=== PATIENT | male | born 1945 | race Caucasian/White ===

== ENCOUNTER 2017-02-10 09:02 | Inpatient (IN) ==
[2017-02-10 11:06] LABS: MANUAL DIFF NEEDED? NO
[2017-02-10 11:11] LABS: BASO% 0.5 % (0.0-0.8); EOS% 3.4 % (0.0-10.0); HEMATOCRIT 36.1 % (42.0-52.0); HEMOGLOBIN 11.5 g/dL (14.0-18.0); IMM GRAN# 0.02 X1000 (0.0-0.04); IMM GRAN% 0.2 % (0.0-0.5); LYMPH# 1.41 X1000 (1.2-3.4); LYMPH% 16.1 % (20.5-51.1); MCH 25.6 PG (27-31); MCHC 31.9 g/dL (33-37); MCV 80.4 FL (81-99); MONO# 0.99 X1000 (0.11-0.59); MONO% 11.3 % (1.7-9.3); MPV 9.9 FL (7.4-10.4); NEUT% 68.5 % (42.2-75.2); PLT 296 X1000 (130-400); RBC 4.49 XMIL (4.7-6.1)
[2017-02-10 11:25] LABS: CALCIUM 8.2 mg/dL (8.8-10.2); POTASSIUM 4.6 mmol/L (3.5-5.1)
[2017-02-10 11:47] LABS: ALLEN TEST YES; BE 1.9 mmoll (-3.0-3.0); BLOOD TYPE ARTERIAL; DRAW SITE L RADIAL; METHB 1.6 % (0.0-1.5); MODALITY ROOM AIR; O2(CT) 15.8 mL/dL (15.0-23.0); PCO2(98.6) 36 mmHg (35-45); PO2(98.6) 77 mmHg (60-100); SAMPLE BLOOD; SAO2 97.7 % (95.0-100.0); THB 11.9 g/dL (11.5-17.4); pH(98.6) 7.46 (7.35-7.45)
--- NOTE | 2017-02-10 12:26 | Diag Imaging Result Document ---
PROCEDURE NAME: CHEST-2 VIEWS - 02/10/2017 FRONTAL AND LATERAL CHEST, TWO VIEWS: COMPARISON: Compared to 01/13/2017. FINDINGS: A heart valve has been replaced. The heart remains mildly enlarged. There is a moderate sized left-sided pleural effusion and there is basilar atelectasis similar to the prior exam. The right lung remains well expanded and clear. No right-sided effusion. IMPRESSION: Stable chest.
--- NOTE | 2017-02-10 12:39 | EKG Report ---
Test Performed on : 02/10/2017 10:48:56 AM Test Reason : chest pain Blood Pressure : / mmHG Vent. Rate : 077 BPM Atrial Rate : 077 BPM P-R Int : 178 ms QRS Dur : 154 ms QT Int : 442 ms P-R-T Axes : 003 074 210 degrees QTc Int : 500 ms Normal sinus rhythm. Left bundle branch block Abnormal ECG When compared with ECG of 04-NOV-2016 06:44, QRS axis shifted right T wave inversion more evident in Inferior leads Confirmed by Robin HERNANDEZ, Grayson Luna ([id number]) on 02/10/2017 4:03:17 PM
--- NOTE | 2017-02-10 13:49 | Diag Imaging Result Document ---
PROCEDURE NAME: ANGIOGRAM/PULMONARY ARTERIES - 02/10/2017 CT OF THE CHEST WITH INTRAVENOUS CONTRAST AND CLARITY: FINDINGS: There are no filling defects in the pulmonary arteries. There are calcifications in the mitral and aortic valves. There are coronary calcifications. The aorta is not distended and there is no evidence of dissection. There is a large left pleural effusion. There is compressive atelectasis present throughout much of the left lung particularly the left lower lobe. There is some apparent thickening of the pleura over the mediastinum on the left with some calcification. There has been previous sternotomy. There are a number of small and nonspecific appearing mediastinal nodes. There are calcifications in the coronary arteries. There is at least one calcified granuloma in the right lower lobe. There is some questionable nodules in the inferomedial posterior costophrenic sulcus on the right. IMPRESSION: 1. Left pleural fluid collection. 2. Compressive atelectasis as described. 3. Other nonacute findings as described above.
[2017-02-10] MEDS: HUMULIN R SUBQ SCH ×3 (15:23→22:02)
[2017-02-10] MEDS: COREG PO SCH (22:17)
[2017-02-10] MEDS: LOPRESSOR PO SCH (22:17)
[2017-02-10] MEDS: COLACE PO SCH (22:17)
[2017-02-10] MEDS: COZAAR PO SCH (22:17)
[2017-02-11] MEDS: HUMULIN R SUBQ SCH ×4 (06:03→21:17)
--- NOTE | 2017-02-11 07:09 | HISTORY AND PHYSICAL ---
CHIEF COMPLAINT: Shortness of breath, nocturnal cough. HISTORY OF PRESENT ILLNESS: He is a 71-year-old pleasant white gentleman with chronic systolic heart failure due to ischemic cardiomyopathy who recently had open heart surgery as well as the aortic valve replacement by Dr. Chaudhry. Postoperative course was complicated by recurrent left pleural effusion and also left upper extremity DVT. Patient has been on Eliquis. He came in my office on Friday. He was found to have moderate pleural effusion. Apparently he had a twice thoracentesis that drained about 1 L each time. Despite, he continues to have nocturnal cough and shortness of breath. No edema. He was given IV Lasix twice a day. Creatinine is going up. He has been admitted to the hospital. Pleur-evac for drainage and based on that, whether he needs a pleurodesis or not. As a result, he has been hospitalized. I did consult with Dr. Reddy. He is going to review the X-rays. The patient also had a positive D-dimer. CT Pulmonary angiogram moderate pleural effusion. No evidence of pulmonary embolism noted. PAST MEDICAL HISTORY: Chronic CHF of 40%, coronary artery disease status post bypass surgery, diabetes, Dupuytren's contracture, hypertension, hearing loss, hyperlipidemia, kidney stones, left ear tinnitus resolved. PAST SURGICAL HISTORY: Status post bypass surgery, aortic valve replacement, right cataract surgery. MEDICATIONS: Insulin pump, simvastatin 10 daily, aspirin 81 mg daily, carvedilol 3.125 p.o. b.i.d., Lasix 40 mg p.o. b.i.d., Colace 100 mg p.o. b.i.d., vitamin B complex 1 tablet daily, Cozaar 25 daily, Eliquis 5 mg daily, Anoro Ellipta inhaler 1 tablet daily. ALLERGIES: Penicillin. SOCIAL HISTORY: , 1 child. No smoking. No alcohol. Retired. FAMILY HISTORY: Father of pancreatic cancer at 78. Mom of heart attack at 76. REVIEW OF SYSTEMS: HEENT: No headache. No vision problem. No earache. No sore throat. Neck: No goiter. No lymphadenopathy. No bruit. Cardiopulmonary: Nocturnal cough , shortness of breath on exertion. No chest pain. No PND. No orthopnea. GI: No nausea, vomiting, abdominal pain. : No history of hesitancy, frequency. Extremities: No swelling of feet. No joint pains. Left upper extremity has a DVT. Neurologic: No focal symptoms or weakness or seizures. PHYSICAL EXAMINATION: VITAL SIGNS: Stable. 5 feet 11 inches, 203 pounds. HEENT: Atraumatic, normocephalic. Pupils equal, react to light. TMs are normal. Nose and throat within normal limits. NECK: Supple. No lymphadenopathy. No goiter. JVD is not elevated. CHEST: Decreased breath sounds in the left base. HEART: Sounds are regular. ABDOMEN: Belly is soft, nontender. Good bowel sounds. No masses palpable. EXTREMITIES: No peripheral edema, cyanosis, clubbing. NEUROLOGIC: No obvious focal deficits. INVESTIGATIONS: CBC: White cell count 8.7, hematocrit 36, platelet 296,000. ABG revealed pH is 7.46, pCO2 36, pO2 77, bicarb 26. SMA 7 is normal. Creatinine 1.3, glucose 176. ProBNP 3000. Chest x-ray with moderate pleural effusion. CT pulmonary angiogram with moderate pleural effusion. No PE noted. EKG with normal sinus, left bundle branch block. ASSESSMENT AND PLAN: 1. A 71-year-old white gentleman, admitted to the hospital with shortness of breath, nocturnal cough due to recurrent pleural effusion on the left side. 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 Check the echocardiography and he was tapped twice in the past. Plan is a Pleur-evac. Dr. Reddy consult. 2. Positive D-dimer. Left upper extremity deep venous thrombosis. Hold on the Eliquis and we will get the reports from [facility]. CT pulmonary angiogram is negative. 3. Reconcile home medicines. 4. Elevated creatinine. Will hold the Lasix. 5. Coronary artery disease status post bypass surgery. Continue secondary prevention with aspirin, Coreg. 6. Chronic systolic heart failure, on metoprolol and losartan. 7. Hyperlipidemia, on simvastatin. 8. Status post bioprosthetic valve replacement for aortic stenosis, stable. 9. Type 2 diabetes on insulin pump. Follow up on sliding scale with insulin coverage. Discussed with Dr. reddy as well as the patient about the plan of care. cc: MD BUDDY Casper
[2017-02-11] MEDS: FLINTSTONES COMPLETE PO SCH (10:02)
[2017-02-11] MEDS: LOPRESSOR PO SCH ×2 (10:03→21:14)
[2017-02-11] MEDS: ASPIRIN EC PO SCH (10:03)
[2017-02-11] MEDS: PATIENT'S OWN MED PO SCH (10:03)
[2017-02-11] MEDS: COREG PO SCH ×2 (10:03→21:14)
[2017-02-11] MEDS: ZOCOR PO SCH (10:03)
[2017-02-11] MEDS: LEVAQUIN 500 MG/D5W 500 MG/100 ML IVPB IV SCH (10:03)
[2017-02-11] MEDS: COLACE PO SCH ×2 (10:03→21:14)
[2017-02-11] MEDS: PATIENT'S OWN MED SUBQ SCH (10:04)
--- NOTE | 2017-02-11 12:47 | ECHO REPORT ---
ORDER DATE: 02/10/2017 SUMMARY: 1. Very technically difficult study due to limited acoustic window quality. 2. Aortic valve is not well imaged. Peak gradient across the aortic valve is 22 mmHg with a mean gradient of 12 mmHg suggesting mild aortic stenosis. Moderate mitral annular calcification and calcification and thickening of posterior mitral leaflet, reduced posterior mitral leaflet mobility is suggested. Mean gradient across the mitral valve is 4 mmHg and the calculated mitral valve area using pressure half-time method is 3 cm2. There is mild mitral regurgitation. Tricuspid valve is without gross structural abnormality. Pulmonic valve not seen. The aortic root is normal size. 3. Grossly normal left ventricular dimensions suggested. Endocardial definition is limited but left ventricular ejection fraction appears to be mildly decreased. Abnormal septal motion is suggested. No other wall motion abnormalities could be appreciated. Left atrium is moderately enlarged. Right atrium and right ventricle are grossly normal in size. 4. No pericardial fusion. 5. Appearance of inferior vena cava suggests elevated central venous pressure. CONCLUSIONS: 1. Very technically difficult study for interpretation. 2. Mild aortic stenosis by Doppler. 3. Moderate mitral annular calcification with calcification and thickening of posterior mitral leaflet with associated mild mitral regurgitation. 4. Limited endocardial definition but left ventricular ejection fraction appears to be mildly decreased. Abnormal septal motion noted. 5. Left atrial enlargement. 6. If clinically indicated, consider repeat echocardiogram with use of echocontrast agent, Definity. cc: MD Dejan Noble MD
--- NOTE | 2017-02-11 18:14 | CONSULTATION ---
DATE OF CONSULTATION: 02/11/2017 CHIEF COMPLAINT: Shortness of breath, left pleural effusion. HISTORY: This is a 71-year-old gentleman who had coronary bypass and tissue valve replacement in the aortic position in mid December. Since then, he has had recurrent left pleural effusion requiring thoracentesis x2 of a large volume that appears to be transudative by history. He is admitted again to Dr. Arceo with shortness of breath and recurrent effusion. PAST MEDICAL HISTORY: Pertinent for mild congestive heart failure. Coronary disease status post bypass. Diabetes, hypertension, hyperlipidemia. PAST SURGICAL HISTORY: Previous surgery includes that noted above as well as a right cataract surgery. MEDICATIONS: Listed and include insulin, simvastatin, aspirin, carvedilol, Lasix, Colace, vitamin B complex, Cozaar, Eliquis, and an inhaler. ALLERGIES: He is allergic to penicillin. SOCIAL HISTORY: He is . Has an attentive family. Does not smoke or drink alcohol. FAMILY HISTORY: Pertinent for pancreatic cancer and heart disease. REVIEW OF SYSTEMS: Primarily pertinent for the cough, shortness of breath. PHYSICAL EXAMINATION: Vital Signs: He is afebrile. Heart rate 75, respiratory rate 18, blood pressure 126/69. No cervical adenopathy. Lungs: Bilateral breath sounds, but he has diminished breath sounds on the left. Healing sternotomy scar. Abdomen: Soft and nontender. Extremities: Femoral pulses are present. Trace peripheral edema. Neuro: He is awake and alert. DIAGNOSTICS/LABS: White count 8700, hemoglobin 11.5. PO2 of 77 on blood gas. BUN 19, creatinine 1.3. BNP is 3282. ASSESSMENT: Recurrent left pleural effusion. The plan will be a placement of a left PleurX catheter for continual drainage of his pleural space until this resolves. We discussed benefits and risks. He understands and wants to proceed. cc: MD Dejan Shultz MD
--- NOTE | 2017-02-11 18:32 | PROGRESS NOTE ---
DATE: 02/11/2017 SUBJECTIVE: The patient complains of redness from the bypass site, nocturnal cough. No shortness of breath. Patient has a echocardiography done. REVIEW OF SYSTEMS: Otherwise none reported. PHYSICAL EXAMINATION: Vitals: Are stable. HEENT: Exam is within normal limits. Decreased breath sounds in the left base. Heart: Sounds are regular. Slight redness noted around the sternotomy site. No peripheral edema. DIAGNOSTIC STUDIES: Blood sugars running 250. ProBNP slightly elevated. Echocardiography report difficult study. Mild aortic stenosis, moderate mitral annular calcification. Posterior mitral leaflet. LV systolic function mildly decreased to 40%. ASSESSMENT AND PLAN: 1. Chronic left pleural effusion. 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 He is improving and waiting for pleural VAC by Dr. Long. 2. Wound infection, slightly red. Levaquin 500 IV daily. 3. Hyperlipidemia on Zocor. 4. Type 2 diabetes on insulin pump. Continue on sliding scale with insulin coverage. 5. Chronic congestive heart failure on metoprolol, losartan. 6. Left upper extremity deep vein thrombosis on hold on Eliquis until the procedure for pleural VAC drainage. LEVEL OF DOCUMENTATION: 25 minutes. cc: Dejan Arceo MD
[2017-02-11] MEDS: COZAAR PO SCH (21:14)
[2017-02-12] MEDS ORDERED: D50W SYRINGE ONE (05:29)
[2017-02-12] MEDS ORDERED: D50W SYRINGE IV ONE ×2 (05:31→06:59)
[2017-02-12] MEDS: HUMULIN R SUBQ SCH ×4 (06:35→20:45)
--- NOTE | 2017-02-12 08:41 | PROGRESS NOTE ---
DATE: 02/12/2017 SUBJECTIVE: No complaints. The patient is doing very well. EXAMINATION: Afebrile. Vitals are stable. HEENT within normal limits. Neck is supple. Redness in the sternotomy area is slowly getting better. The rest of the exam is stable. ASSESSMENT AND PLAN: 1. Recurrent left pleural effusion. I discussed with Dr. Long. He is going to do a Pleur-evac today. 2. Soft tissue skin infection from the sternotomy scar. Continue on Levaquin. 3. Coronary artery disease status post bypass surgery, on metoprolol and aspirin. 4. Chronic chronic heart failure. LV function is slowly improving. Continue on Coreg and losartan. Level of documentation: 15 minutes. cc: Dejan Arceo MD
[2017-02-12] MEDS: LEVAQUIN 500 MG/D5W 500 MG/100 ML IVPB IV SCH (08:56)
[2017-02-12] MEDS: ZOCOR PO SCH (09:02)
[2017-02-12] MEDS: FLINTSTONES COMPLETE PO SCH (09:03)
[2017-02-12] MEDS: PATIENT'S OWN MED SUBQ SCH (09:03)
[2017-02-12] MEDS: PATIENT'S OWN MED PO SCH (09:03)
[2017-02-12] MEDS: ASPIRIN EC PO SCH (09:04)
[2017-02-12] MEDS: COREG PO SCH ×2 (09:04→20:40)
[2017-02-12] MEDS: COLACE PO SCH ×2 (09:04→20:40)
[2017-02-12] MEDS: LOPRESSOR PO SCH ×2 (09:30→20:40)
[2017-02-12] MEDS ORDERED: DIPRIVAN 1% ONE (13:50)
[2017-02-12] MEDS ORDERED: NORCO-5 PO PRN (14:17)
--- NOTE | 2017-02-12 15:37 | OPERATIVE NOTE ---
PROCEDURE DATE: 02/12/2017 PROCEDURE: Placement of left Pleurx catheter. SURGEON: Chris Long MD RN MATERNITY: [place] PREOPERATIVE DIAGNOSIS: Recurrent large left pleural effusion. POSTOPERATIVE DIAGNOSIS: Recurrent large left pleural effusion. INDICATIONS: A 71-year-old who has a recurrent transudative left pleural effusion that required a thoracentesis x2. He now presents for Pleurx catheter placement. DESCRIPTION OF PROCEDURE: Satisfactory monitoring anesthesia care was established. With IV sedation accomplished, the left anterolateral chest was prepped and draped in a sterile fashion. We chose a rib below the left nipple, anesthetized the skin over the rib, anesthetized the soft tissue then the pleura just over a rib. We introduced a needle into the pleural space until we aspirated fluid. We then introduced the guidewire into the pleural space. Lateral and inferior to this, we anesthetized the skin, made an incision, and then tunneled Pleurx catheter to position the cuff in the subcutaneous tunnel. We then introduced the dilator, followed by the dilator and introducer sheath. We removed the dilator and guidewire and introduced the Pleurx catheter into the pleural space. We peeled away the introducer sheath. We then attached the Pleurx catheter to the adaptor so that we could attach it to suction. We then sucked out 1600 mL of mostly serous fluid. This seemed to evacuate the space adequately. We then disconnected the suction and capped off the Pleurx catheter. We closed the skin incision at the entrance site into the pleural space with a 4-0 Polysorb subcuticular stitch. I used a 2-0 silk stitch to secure the PleurX catheter at the exit site. Sterile sponge in the OpSite dressing was applied. He tolerated it well, was sent to the recovery room in satisfactory condition. cc: MD Dejan Shultz MD
[2017-02-12] MEDS: ANORO ELLIPTA 62.5-25 MCG INH INH SCH (17:34)
[2017-02-12] MEDS: COZAAR PO SCH (20:40)
[2017-02-13 07:41] VITALS: BP 133/59
[2017-02-13] MEDS: HUMULIN R SUBQ SCH (07:45)
--- NOTE | 2017-02-13 08:19 | Diag Imaging Result Doc PS360 ---
CHEST-2 VIEWS - 02/13/2017 INDICATION: hypoxia COMPARISON: 02/10/2017 FINDINGS: There is a new left basilar chest tube. There is significant decrease in the left basilar pleural effusion. No pneumothorax. There is decreased infiltrate/edema throughout the left lung. Stable surgical changes to the heart and cardiomegaly. The right lung is clear. IMPRESSION: New left basilar chest tube with decrease in the left pleural effusion and basilar infiltrate. Electronically signed by Celso Emmanuel 02/13/2017 8:17 AM
[2017-02-13] MEDS: COREG PO SCH (09:16)
[2017-02-13] MEDS: ASPIRIN EC PO SCH (09:16)
[2017-02-13] MEDS: ZOCOR PO SCH (09:16)
[2017-02-13] MEDS: LOPRESSOR PO SCH (09:16)
[2017-02-13] MEDS: COLACE PO SCH (09:16)
[2017-02-13] MEDS: FLINTSTONES COMPLETE PO SCH (09:16)
[2017-02-13] MEDS: ANORO ELLIPTA 62.5-25 MCG INH INH SCH ×2 (09:18→09:19)
[2017-02-13] MEDS: LEVAQUIN 500 MG/D5W 500 MG/100 ML IVPB IV SCH (09:19)
[2017-02-13] MEDS: PATIENT'S OWN MED PO SCH (09:20)
[2017-02-13] MEDS: PATIENT'S OWN MED SUBQ SCH (09:21)
--- NOTE | 2017-02-15 19:19 | DISCHARGE SUMMARY ---
ADMISSION DATE: 02/10/2017 DISCHARGE DATE: 02/13/2017 DISCHARGING DIAGNOSIS: Shortness of breath due to recurrent left pleural effusion. SECONDARY DIAGNOSES: 1. Chronic congestive heart failure due to ischemic cardiomyopathy, ejection fraction 40%. 2. Coronary artery disease status post bypass surgery 11/2016. 3. Type 2 diabetes on insulin pump. 4. Dupuytren's contracture of both hands. 5. Hypertension. 6. Hearing loss. 7. Hyperlipidemia. 8. History of kidney stones. 9. Status post aortic valve replacement, bioprosthetic for aortic stenosis. CONSULTANTS: Dr. Long. PROCEDURES: Pleurx catheter insertion on the left side. BRIEF HISTORY: Please see the H and P that was done on 02/10/2017. In brief, he is a 71-year-old white gentleman with the above problems. Recently had a bypass surgery and valve replacement in [place] complicated by wound infection of the sternum and recurrent left pleural effusions and tapped twice, each time about a L of fluid. He was unable to improve and recurring pleural effusion with nocturnal cough and shortness of breath. Patient also complicated by a left upper extremity DVT in [facility] on Eliquis 5 mg p.o. b.i.d. He was admitted to the hospital from my office with shortness of breath due to moderate left pleural effusion. HOSPITAL COURSE: The patient was advised to start Eliquis and Dr. Long was consulted. He did a Pleurx catheter placement on the left side, drained about 1.6 transudate fluid. Patient tolerated procedure very well. Followup chest x-ray is improved atelectasis. PROCEDURES DURING THIS ADMISSION FOLLOWS: CT pulmonary angiogram negative for PE, left pleural effusion with compressive atelectasis. Echocardiography with Doppler technically difficult study, mild aortic stenosis by Doppler. EF is around 40%. Left atrial enlargement. DISCHARGING INSTRUCTIONS FOLLOWS: Patient was given education about Pleurx evacuation of the recurrent pleural effusion. Continue on insulin pump. Simvastatin 10 mg daily , aspirin 81 mg daily, Coreg 3.125 mg p.o. b.i.d. Discontinue Lasix. Colace 100 mg p.o. b.i.d. , vitamin B complex 1 tablet daily, iron tablets 1 tablet daily, Cozaar 25 mg daily, Eliquis 5 mg p.o. b.i.d., Anoro 1 puff daily, Levaquin 500 mg daily for wound infection and [place] for pain. Follow up in my office in 10 days as well as with Dr. Long. cc: MD Chris Casper MD Peter Johnson, MD MTDDorina
== END 2017-02-13 09:42 | disposition home or self-care (01) ==
LOC: DIRADM 09:02 → 4N 10:41
PROVIDERS: ADMIT Internal Medicine; ATTEND Internal Medicine

== ENCOUNTER 2019-09-03 11:53 | Inpatient (IN) ==
[2019-09-03 13:54] LABS: HEMATOCRIT 43.2 % (42.0-52.0); HEMOGLOBIN 14.4 g/dL (14.0-18.0); MCH 30.1 PG (27-31); MCHC 33.3 g/dL (33-37); MCV 90.4 FL (81-99); RBC 4.78 XMIL (4.7-6.1); RDW 13.5 % (11.5-14.5); WBC 11.39 X1000 (4.8-10.8)
[2019-09-03 14:17] LABS: ALB/GLOB RATIO 1.4; ALBUMIN 4.1 g/dL (3.5-5.0); CALCIUM 9.1 mg/dL (8.8-10.2); CREATININE 1.2 mg/dL (0.7-1.2); POTASSIUM 4.5 mmol/L (3.5-5.1); TOTAL BILIRUBIN 0.63 mg/dL (0.20-1.00)
[2019-09-03] MEDS: DILAUDID IV PRN ×3 (14:48→20:52)
--- NOTE | 2019-09-03 14:54 | Diag Imaging Result Doc PS360 ---
EXAM: MRI LUMBAR SPINE W/WO CONTRAST 09/03/2019 HISTORY: Severe left hip pain TECHNIQUE: T1-T2 and STIR sagittal, post gadolinium T1 fat sat sagittal, T1 and T2 with post gadolinium T1 axial. COMMENT: There is Modic type II change in the endplates at L to three. There is disc space narrowing at this level. There is desiccation at L3-4 and desiccation and mild disc space narrowing at the L5-S1 level. No intrathecal masses or signal abnormalities are present. At the L1-2 level there is minimal disc bulge without evidence of spinal or foraminal stenosis. At L2-3 there is no evidence of significant spinal or foraminal stenosis. At L3-4 there is no evidence of spinal or foraminal stenosis. At L4-5 due to disc bulge and severe ligamentum flavum thickening there is a severe degree of spinal stenosis. The foramina appear to be patent. At the L5-S1 level there is a extruded nucleus pulposus on the left impinging on the left S1 nerve root. There is no evidence of abnormal gadolinium enhancement. IMPRESSION: Spinal stenosis at L4-5. Herniated nucleus pulposis at L5-S1. Degenerative disc disease elsewhere as described. Electronically signed by Paulino Garcia 09/03/2019 2:52 PM
--- NOTE | 2019-09-03 14:57 | Diag Imaging Result Doc PS360 ---
EXAM: MRI LOWER EXT W/WO CON-LEFT 09/03/2019 HISTORY: Severe left hip pain TECHNIQUE: MRI of the left hip without contrast, axial T1, proton density fat sat, post gadolinium axial T1, coronal STIR, T1, and post gadolinium T1 fat sat, angled oblique and sagittal T2. COMMENT: There is no evidence of bone marrow edema. There is a small amount of fluid in the joint space. There is a bone island in the femoral head. No evidence of abnormal fluid collection or abnormal gadolinium enhancement is present. There is no evidence of labral tear. IMPRESSION: No evidence of acute bony abnormality. Electronically signed by Paulino Garcia 09/03/2019 2:55 PM
--- NOTE | 2019-09-03 19:03 | HISTORY AND PHYSICAL ---
CHIEF COMPLAINT: Intractable left-sided hip pain and left thigh pain since 2 weeks ago. HISTORY OF PRESENT ILLNESS: He is a 74-year-old white male who came to my office a 2nd time with left hip pain and back pain. He was positive straight leg raise test. He is not able to ambulate. X-rays of left hip is unremarkable. No rashes noted. Positive straight leg raise test. X-ray of lumbar spine showed spondylosis. No acute bony injury identified. He can't even walk to the bathroom. Basically admitted to the hospital for intractable left sciatica pain, rule out herniated disk. I ordered MRI of the left hip, MRI of lumbar spine. As a result, a hospital admission was warranted. PAST MEDICAL HISTORY: Ischemic cardiomyopathy, chronic systolic heart failure, CHF 40%, type 2 diabetes, Dupuytren's contracture, hypertension, hearing loss, hyperlipidemia, kidney stones. PAST SURGICAL HISTORY: Bypass surgery, aortic valve replacement, right cataract surgery, status post pleural effusion drained on the left side. ALLERGIES: Reported to penicillin. SOCIAL HISTORY: , one child. No smoking. No alcohol. Retired. FAMILY HISTORY: Father of pancreatic cancer at 78. Mom of heart attack at 76. MEDICATIONS: Prior to the admission: Simvastatin 10 daily, aspirin 81 mg daily, Coreg 3.125 p.o. b.i.d., vitamin B complex 150 daily, Lasix 40 daily, subcutaneous insulin pump, multivitamin 1 tablet daily. Entresto 49/51 one puff p.o. b.i.d. REVIEW OF SYSTEMS: HEENT: No headache. No vision problem. No earache. No sore throat. Neck: No goiter. No lymphadenopathy. No bruit. Cardiopulmonary: No chest pain, shortness of breath, PND, orthopnea. GI: No nausea, vomiting, abdominal pain. : No history of hesitancy, frequency, dysuria. Intractable left sided hip pain. No weakness. PHYSICAL EXAMINATION: Temperature is 97 degrees pulse is 70. Vitals are stable. HEENT: Atraumatic, normocephalic. Pupils equal, react to light. TMs are normal. Nose and throat within normal limits. NECK: Supple. No lymphadenopathy. No goiter. CHEST: Bilateral air entry. HEART: Sounds are regular. No murmur. ABDOMEN: Belly is soft, nontender. Good bowel sounds. No masses palpable. EXTREMITIES: Straight leg raise test is positive. SKIN: No rashes noted. LABS: White cell count 11, hematocrit 43 platelets 190,000. SMA 7 is normal. LFTs were normal. ASSESSMENT AND PLAN: 1. A 74-year-old white male admitted to the hospital with left sciatica pain. Positive straight leg raise test. MRI of lumbar spine showed herniated disk, L5-S1. MRI of the hip is unremarkable. Plan is judicious use of IV steroids 40 mg daily. Monitoring blood sugars. 2. IV Toradol or Dilaudid. Physical therapy. If symptoms will not improve, consider transfer to the [facility]. 3. Deep vein thrombosis prophylaxis with Lovenox. 4. Reconcile home medications. Continue on Robaxin. 5. Chronic systolic heart failure ischemic cardiomyopathy stable and will follow up. cc: Dejan Arceo MD
[2019-09-03] MEDS: ENTRESTO 49 MG-51 MG TABLET PO SCH (21:29)
[2019-09-03] MEDS: LOVENOX SUBQ SCH (21:29)
[2019-09-03] MEDS: COREG PO SCH (21:29)
[2019-09-03] MEDS: ZOCOR PO SCH (21:29)
[2019-09-03] MEDS ORDERED: PATIENT'S OWN MED MISC SCH (21:30)
[2019-09-03] MEDS: HUMULIN R SUBQ SCH (21:34)
[2019-09-04] MEDS: DILAUDID IV PRN ×6 (00:30→20:51)
[2019-09-04] MEDS: HUMULIN R SUBQ SCH ×4 (06:16→20:53)
[2019-09-04] MEDS: VICON-C PO SCH (08:51)
[2019-09-04] MEDS: ASPIRIN EC PO SCH (08:51)
[2019-09-04] MEDS: SOLU-MEDROL IV SCH (08:51)
[2019-09-04] MEDS: ENTRESTO 49 MG-51 MG TABLET PO SCH ×2 (08:51→20:54)
[2019-09-04] MEDS: THERA M PLUS PO SCH (08:51)
[2019-09-04] MEDS: ROBAXIN PO SCH ×3 (08:51→17:25)
[2019-09-04] MEDS: COREG PO SCH ×2 (08:51→20:54)
[2019-09-04] MEDS: LASIX PO SCH (08:51)
--- NOTE | 2019-09-04 17:34 | PROGRESS NOTE ---
DATE: 09/04/2019 A 74-year-old white gentleman, admitted with significant pain in the lower back, left hip and leg. Pain was moderate to severe in intensity. The patient was not able to stand or walk. He did try outpatient treatment without significant relief. No urinary or bowel incontinence. The patient did have significant muscle spasm. No fever or chills. No nausea or vomiting. The patient does have a history of coronary artery disease status post CABG. Patient also had aortic wall replacement done, history of congestive heart failure due to ischemic cardiomyopathy, diabetes mellitus, Dupuytren contracture, hypertension, mild hearing impairment, hyperlipidemia and kidney stone. He denied unusual cough, expectoration or hemoptysis. No dysuria or hematuria. No abdominal pain, nausea, vomiting. No recent fall or trauma. Admission history and physical noted. PAST MEDICAL HISTORY AND MEDICATION: Reviewed. Vital signs: Blood pressure 153/57, pulse 57, respirations 20, temperature 97.3 degrees. Neck: Supple. No JVD, thyromegaly or lymphadenopathy. Chest: Bibasilar crepitation. Pupils equally reacting to light. Extraocular muscle movement normal. No pharyngeal congestion. Cardiovascular: S1 and S2 heard. No gallop or thrill. Abdomen: Soft, nontender. Bowel sounds present. Extremities: No cyanosis, clubbing. No acute DVT. Movement of left hip and leg causing pain in the lower back. 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 CONSIDERATION: 1. Pain in the lower back and left hip with radiculopathy. MRI of the lumbar spine showed herniated disk L5-S1. 2. Congestive heart failure. 3. Diabetes mellitus. 4. Ischemic cardiomyopathy. 5. Coronary artery disease. PLAN: Pain management, muscle relaxer, low dose steroid, fall precaution, physical therapy. Overall plan discussed at length with the patient and he is in agreement. Admission lab data noted. cc: MD Dejan oJ MD
[2019-09-04] MEDS: LOVENOX SUBQ SCH (18:26)
[2019-09-04] MEDS: ZOCOR PO SCH (20:54)
[2019-09-05] MEDS: HUMULIN R SUBQ SCH ×4 (06:09→21:07)
[2019-09-05] MEDS: DILAUDID IV PRN ×5 (06:10→21:28)
[2019-09-05] MEDS: SOLU-MEDROL IV SCH (08:47)
[2019-09-05] MEDS: ROBAXIN PO SCH ×3 (08:47→17:09)
[2019-09-05] MEDS: VICON-C PO SCH (08:47)
[2019-09-05] MEDS: ASPIRIN EC PO SCH (08:47)
[2019-09-05] MEDS: LASIX PO SCH (08:47)
[2019-09-05] MEDS: THERA M PLUS PO SCH (08:47)
[2019-09-05] MEDS: ENTRESTO 49 MG-51 MG TABLET PO SCH ×2 (08:47→21:01)
[2019-09-05] MEDS: COREG PO SCH ×2 (09:30→21:01)
--- NOTE | 2019-09-05 09:43 | PROGRESS NOTE ---
DATE: 09/05/2019 SUBJECTIVE: Mr. Baer is still complaining of significant pain in the left hip and leg, more pain with certain movement. Physical therapy helped him some along with the pain medicine and muscle relaxer. The patient is still having difficulty getting up and walking. No fever or chills. No urinary or bowel incontinence. No nausea or vomiting. No major hypoglycemic episode. OBJECTIVE: Vital Signs: Noted. Neck: Supple. No JVD. Lungs: Bilateral good air entry present. Cardiovascular: S1 and S2 heard, 1 to 2/6 systolic murmur at the apex. Abdomen: Soft, nontender. Bowel sounds present. Musculoskeletal: Tenderness lumbosacral spine and the left hip. 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 CONSIDERATION: 1. Significant low back pain and the hip pain. The patient does have herniated disk L5-S1. 2. Congestive heart failure. Clinically well compensated. 3. Diabetes mellitus. 4. Coronary artery disease, chest pain free. 5. Ischemic cardiomyopathy. 6. Overall patient is doing better. We will continue current treatment and close observation. cc: MD Dejan Jo MD
[2019-09-05] MEDS: LOVENOX SUBQ SCH (18:16)
[2019-09-05] MEDS: ZOCOR PO SCH (21:01)
[2019-09-06] MEDS: DILAUDID IV PRN ×2 (05:20→08:36)
[2019-09-06] MEDS: HUMULIN R SUBQ SCH (06:20)
[2019-09-06 08:09] VITALS: BP 118/49
[2019-09-06] MEDS: SOLU-MEDROL IV SCH (08:35)
[2019-09-06] MEDS: THERA M PLUS PO SCH (08:36)
[2019-09-06] MEDS: ENTRESTO 49 MG-51 MG TABLET PO SCH (08:36)
[2019-09-06] MEDS: LASIX PO SCH (08:36)
[2019-09-06] MEDS: ROBAXIN PO SCH (08:36)
[2019-09-06] MEDS: COREG PO SCH (08:36)
[2019-09-06] MEDS: VICON-C PO SCH (08:36)
[2019-09-06] MEDS: ASPIRIN EC PO SCH (08:36)
[2019-09-06] MEDS ORDERED: MIRALAX PO SCH (09:00)
--- NOTE | 2019-09-06 19:06 | DISCHARGE SUMMARY ---
ADMISSION DATE: 09/03/2019 DISCHARGE DATE: 09/06/2019 DISCHARGING DIAGNOSIS: Left sciatica pain due to herniated disk, L5-S1. SECONDARY DIAGNOSES: 1. Ischemic cardiomyopathy, chronic systolic heart failure, ejection fraction 40%. 2. Type 2 diabetes. 3. Hypertension. 4. Dupuytren contracture. 5. Deafness. 6. Hyperlipidemia. 7. Kidney stones. 8. Status post bypass surgery. 9. Aortic valve replacement. BRIEF HISTORY: Please see the H and P that was done on 09/03/2019. In brief, he is a 74-year-old white male with the above problems, admitted to the hospital with a 2 week history of incessant left sciatic pain, unable to walk with outpatient treatment. The patient has a positive straight leg raise test. Further workup revealed MRI showing a herniated disk at L5-S1. The patient was given IV steroids, Dilaudid. The patient was constipated. The patient was not able to ambulate after 3 days. I spoke to Dr. Cantu who is willing to take him to the [facility] for diskectomy surgery. The patient is being transferred to [facility] in stable condition. DISCHARGE INSTRUCTIONS ARE FOLLOWS: 1. Simvastatin 10 mg daily. 2. Aspirin 81 mg daily. 3. Coreg 3.125 p.o. b.i.d. 4. Lasix 40 daily. 5. Subcutaneous insulin pump. 6. Entresto 49/50 one p.o. b.i.d. 7. Continue pain medicines. 8. Follow up with transfer to [facility] under Dr. Cantu. cc: Dejan Arceo MD
== END 2019-09-06 10:40 | disposition short-term general hospital (02) | DRG 552 ==
LOC: DIRADM 11:53 → EDIPHOLD 12:42 → 1N 15:38
PROVIDERS: ADMIT Internal Medicine; ATTEND Internal Medicine

== ENCOUNTER 2019-09-14 16:11 | Inpatient (IN) ==
[2019-09-14] MEDS: PROTONIX IV SCH (17:41)
[2019-09-14] MEDS: ROCEPHIN 1 GM in NS 50 ML IV SCH (17:41)
[2019-09-14] MEDS: ZITHROMAX 500 MG/NS 500 MG/250 ML IVPB IV SCH (18:42)
[2019-09-14] MEDS ORDERED: NS 1,000 ML IV SCH ×2 (21:15)
[2019-09-14] MEDS ORDERED: LOVENOX SUBQ SCH (21:15)
--- NOTE | 2019-09-14 21:33 | HISTORY AND PHYSICAL ---
CHIEF COMPLAINT: Hallucinations, shortness of breath, cough. HISTORY OF PRESENT ILLNESS: He is a 74-year-old white gentleman, recently discharged from [facility] after back surgery for left sciatica pain due to herniated disk at L5-S1. He was seen in our clinic with URI symptoms, cough, and congestion, and he was given Levaquin. He failed to improve and came in my office today. Chest x-ray showed left upper lobe pneumonia and admitted to the hospital with altered mental status due to left upper lobe pneumonia. Pneumonia protocol was initiated. PAST MEDICAL HISTORY: 1. Ischemic cardiomyopathy. 2. Chronic systolic heart failure, EF 40%. 3. Type 2 diabetes. 4. Hypertension. 5. Dupuytren contracture. 6. Deafness. 7. Hyperlipidemia. 8. Kidney stone. PAST SURGICAL HISTORY: 1. Bypass surgery. 2. Aortic valve replacement. 3. Right cataract surgery. 4. Status post draining of the pleural effusion. 5. Status post back surgery by Dr. Cantu at the L5-S1 herniated disk. ALLERGIES: Reported questionable to penicillin. SOCIAL HISTORY: ; 1 child. No smoking. No alcohol. Retired. FAMILY HISTORY: Father of pancreatic cancer at 78. Mom of heart attack at 76. MEDICATIONS: 1. Simvastatin 10 daily. 2. Aspirin 81 mg daily. 3. Coreg 3.125 p.o. b.i.d. 4. Entresto 49/51 p.o. b.i.d. 5. Multivitamin 1 tablet daily. 6. [place] for pain. 7. Levaquin. REVIEW OF SYSTEMS: HEENT: No headache, no vision problem. Deafness. Neck: No neck pain, no goiter, no lymphadenopathy. Cardiopulmonary: Cough, congestion. No chest pain. No PND. No orthopnea. GI: No nausea, vomiting, abdominal pain. : No history of hesitancy, frequency, dysuria. Back pain slowly improving. Able to walk with a walker. No swelling of feet. No joint pain. Neurologic: No focal symptoms or weakness. PHYSICAL EXAMINATION: VITAL SIGNS: He has a low-grade fever. 5 feet 9 inches, 206 pounds. 2 L nasal cannula. HEENT: Atraumatic, normocephalic. Pupils equal, react to light. TMs are normal. Nose and throat are congested. NECK: Supple. No lymphadenopathy. CHEST: Crackles and rhonchi on the left side of the chest. HEART: Sounds are regular. ABDOMEN: Belly is soft and nontender. He had tony present over the lower part of the back. EXTREMITIES: No peripheral edema. NEUROLOGIC: No focal deficits. INVESTIGATIONS: Pending. ASSESSMENT AND PLAN: 1. A 74-year-old white male admitted to the hospital with left upper lobe pneumonia and pneumonia protocol. Follow up on the pending labs. Will give gentle intravenous fluids and intravenous ceftriaxone, Zithromax, and bronchodilators. 2. Gastrointestinal prophylaxis with intravenous Protonix. 3. Deep venous thrombosis prophylaxis with Lovenox. 4. Slowly reconcile home medications. 5. Initiate vaccination protocol. 6. Will follow up. Discussed with . cc: Dejan Arceo MD
[2019-09-14] MEDS: COREG PO SCH (23:46)
[2019-09-14] MEDS: ENTRESTO 49 MG-51 MG TABLET PO SCH (23:46)
[2019-09-15] MEDS: LOVENOX SUBQ SCH ×2 (00:05→20:56)
[2019-09-15] MEDS ORDERED: ALBUTEROL NEB INH ONE (01:44)
[2019-09-15] MEDS: ATIVAN IV PRN ×2 (02:37→04:01)
[2019-09-15] MEDS: LASIX IV SCH ×3 (02:38→20:56)
[2019-09-15 02:45] LABS: URINE SOURCE CATH
[2019-09-15 02:48] LABS: BILIRUBIN URINE NEGATIVE (NEGATIVE); BLOOD URINE NEGATIVE (NEGATIVE); COLOR YELLOW; GLUCOSE URINE 500 mg/dL (NEGATIVE); KETONE URINE 40 mg/dL (NEGATIVE); LEUKOCYTES URINE NEGATIVE (NEGATIVE); NITRITE URINE NEGATIVE (NEGATIVE); PROTEIN URINE TRACE mg/dL (NEGATIVE); SP GRAVITY URINE 1.024; TURBIDITY URINE CLEAR (CLEAR); UROBILINOGEN URINE NORMAL (NORMAL)
[2019-09-15 02:57] LABS: UR EPITHELIAL CELLS <10 /HPF (<10); URINE BACTERIA NEGATIVE /HPF; URINE RBC <10 /HPF (<10); URINE WBC <10 /HPF (<10)
[2019-09-15 03:10] LABS: URINE CASTS NONE SEEN; URINE CRYSTALS NONE SEEN; URINE SMALL ROUND CELLS NONE SEEN; URINE YEAST NONE SEEN
[2019-09-15] MEDS ORDERED: LASIX IV ONE ×2 (03:50→08:02)
[2019-09-15 04:03] LABS: BE -1.9 mmoll (-3.0-3.0); BLOOD TYPE ARTERIAL; HCO3-(ACT) 23.4 mmoll (20.0-26.0); METHB 1.2 % (0.0-1.5); O2(CT) 14.5 mL/dL (15.0-23.0); O2HB 95.7 % (95.0-99.0); PCO2(98.6) 34 mmHg (35-45); PO2(98.6) 87 mmHg (60-100); SAMPLE BLOOD; SAO2 99.2 % (95.0-100.0); THB 10.7 g/dL (11.5-17.4); pH(98.6) 7.42 (7.35-7.45)
[2019-09-15 04:06] LABS: ALLEN TEST YES; MODALITY NRB
[2019-09-15 04:16] LABS: BASO# 0.02 X1000 (0.0-0.2); BASO% 0.1 % (0.0-0.8); HEMATOCRIT 33.4 % (42.0-52.0); HEMOGLOBIN 10.8 g/dL (14.0-18.0); IMM GRAN# 0.04 X1000 (0.0-0.04); IMM GRAN% 0.3 % (0.0-0.5); LYMPH% 5.1 % (20.5-51.1); MCHC 32.3 g/dL (33-37); MCV 89.5 FL (81-99); MONO# 0.91 X1000 (0.11-0.59); MONO% 6.6 % (1.7-9.3); MPV 10.1 FL (7.4-10.4); NEUT# 12.04 X1000 (1.4-6.5); NEUT% 87.9 % (42.2-75.2); PLT 255 X1000 (130-400); RBC 3.73 XMIL (4.7-6.1); RDW 13.2 % (11.5-14.5); WBC 13.71 X1000 (4.8-10.8)
[2019-09-15 04:38] LABS: AGAP 18; ALB/GLOB RATIO 1.1; ALBUMIN 3.2 g/dL (3.5-5.0); ALKALINE PHOSPHATASE 68 U/L (32-122); BUN 23 mg/dL (8-22); CALCIUM 8.3 mg/dL (8.8-10.2); CHLORIDE 90 mmol/L (98-107); COSMO 275; CREATININE 1.1 mg/dL (0.7-1.2); ESTIMATED GFR > 60; GLUCOSE 328 mg/dL (70-104); GOT 37 U/L (10-34); GPT 25 U/L (10-44); POTASSIUM 4.5 mmol/L (3.5-5.1); SODIUM 129 mmol/L (136-145); TCO2 21 mmol/L (25-35); TOTAL BILIRUBIN 1.13 mg/dL (0.20-1.00); TOTAL PROTEIN 6.2 g/dL (6.3-8.3)
[2019-09-15] MEDS: MORPHINE IV PRN ×2 (04:46→15:05)
[2019-09-15 05:36] LABS: LYMPHS 5 % (21-51); MONO 5 % (1-9); SEGS 90 % (42-75)
[2019-09-15] MEDS: ALBUTEROL NEB INH SCH ×6 (05:44→23:20)
[2019-09-15] MEDS: HUMULIN R SUBQ SCH ×4 (06:03→20:56)
--- NOTE | 2019-09-15 07:17 | Diag Imaging Result Doc PS360 ---
EXAM: CHEST-PORTABLE INDICATION: respiratory distress TECHNIQUE: One view COMPARISON: 03/18/2017 FINDINGS: There is prominent central vasculature, and there are bilateral infiltrates with a central predominance most consistent with pulmonary venous congestion and pulmonary edema. There is probably a trace left effusion. There is no evidence of pneumothorax. There is a stable prosthetic heart valve and there is stable cardiomegaly. IMPRESSION: Findings suggestive of pulmonary venous congestion and pulmonary edema. Electronically signed by Gus Arellano 09/15/2019 7:15 AM
--- NOTE | 2019-09-15 08:21 | EKG Report ---
Test Performed on : 09/15/2019 08:15:21 AM Test Reason : chest pain Blood Pressure : / mmHG Vent. Rate : 078 BPM Atrial Rate : 078 BPM P-R Int : 158 ms QRS Dur : 162 ms QT Int : 466 ms P-R-T Axes : 009 -10 097 degrees QTc Int : 531 ms Normal sinus rhythm. Left bundle branch block Abnormal ECG When compared with ECG of 10-FEB-2017 10:48, Questionable change in QRS axis T wave inversion no longer evident in Inferior leads Confirmed by Anjum HERNANDEZ, Juanito ([id number]) on 09/15/2019 5:54:10 PM
[2019-09-15] MEDS: KLOR-CON PO SCH (08:59)
[2019-09-15] MEDS: ENTRESTO 49 MG-51 MG TABLET PO SCH ×2 (08:59→20:52)
[2019-09-15] MEDS: ASPIRIN EC PO SCH (08:59)
[2019-09-15] MEDS: COREG PO SCH ×2 (08:59→20:52)
[2019-09-15] MEDS: THERA M PLUS PO SCH (09:00)
[2019-09-15] MEDS: VICON-C PO SCH (09:00)
[2019-09-15 09:36] LABS: ALLEN TEST NO; BLOOD TYPE ARTERIAL; HCO3-(ACT) 28.1 mmoll (20.0-26.0); METHB 1.5 % (0.0-1.5); O2(CT) 13.9 mL/dL (15.0-23.0); O2HB 96.8 % (95.0-99.0); PCO2(98.6) 34 mmHg (35-45); PO2(98.6) 280 mmHg (60-100); SAMPLE BLOOD; SAO2 99.8 % (95.0-100.0); THB 9.7 g/dL (11.5-17.4); pH(98.6) 7.51 (7.35-7.45)
[2019-09-15 09:37] LABS: MODALITY BI PAP
[2019-09-15] MEDS: ROCEPHIN 1 GM in NS 50 ML IV SCH (16:15)
[2019-09-15] MEDS: SODIUM CHLORIDE 0.9% INJ SCH (16:15)
[2019-09-15] MEDS: PROTONIX IV SCH (16:15)
[2019-09-15] MEDS: ZITHROMAX 500 MG/NS 500 MG/250 ML IVPB IV SCH (16:16)
[2019-09-15] MEDS: ZOCOR PO SCH (20:52)
--- NOTE | 2019-09-15 21:56 | PROGRESS NOTE ---
DATE: 09/15/2019 SUBJECTIVE: Events noted: Over the drier tender the patient went into respiratory distress, requiring high FIO2. Transferred to ICU on BiPAP machine. Chest x-ray: Florid CHF. Elevated proBNP. He has a history of ischemic cardiomyopathy, EF 35% under Dr. Mehta. In my office, he has infiltrate in the left upper lobe, elevated white cell count. The patient was sedated and on BiPAP machine. Briggs was placed. Lasix was given. REVIEW OF SYSTEMS: None reported. OBJECTIVE: Temperature is 97.6 degrees, pulse 67. Vital signs are stable. On BiPAP machine. Intake and output -3 L. Chest: Bilateral air entry with crackles. Heart sounds are regular. Belly is soft, nontender. No peripheral edema. LABORATORY DATA: CBC: White cell count 13.71, hematocrit 33, platelets 255,000. ABG: PH is 7.51, pCO2 is 34, pO2 is 80, on BiPAP 80. Sodium 129, potassium 4.5, BUN 33, creatinine 1.1, glucose 173. ProBNP 10,000. DIAGNOSTIC DATA: Chest x-ray: Florid congestive heart failure. ASSESSMENT AND PLAN: 1. Acute respiratory failure due to congestive heart failure. Check echocardiography. Cardiology consult. Bilevel positive airway pressure, slowly wean off oxygen. Intravenous diuresis. 2. Left upper lobe pneumonia. Intravenous Rocephin and Zithromax. 3. Ischemic cardiomyopathy, status post aortic valve replacement. We will assess the valve function with echocardiogram. 4. Deep vein thrombosis and gastrointestinal prophylaxis with Lovenox and Protonix. 5. Status post back surgery recently, stable. 6. I spoke to the on the telephone. She also has been suffering from acute respiratory infection with bronchitis. Repeat the chest x-ray and the labs in the morning. Level of documentation 35 minutes. cc: Dejan Arceo MD
[2019-09-16] MEDS: ALBUTEROL NEB INH SCH ×6 (03:25→22:55)
--- NOTE | 2019-09-16 04:00 | CONSULTATION ---
DATE OF CONSULTATION: 09/15/2019 IMPRESSION: 1. Respiratory failure with chest x-ray suggesting pulmonary edema. Cannot exclude pneumonia. 2. Valvular heart disease, with previous aortic valve replacement with bioprosthesis in 2017 for aortic stenosis. The patient also had coronary bypass surgery at that time. 3. Atherosclerotic coronary disease with previous coronary bypass grafting in 2017, along with aortic valve replacement with bioprosthesis. 4. Cardiomyopathy with left ventricular ejection fraction around 25% by most recent echocardiography. 5. Type 2 diabetes mellitus. 6. Hypertension. 7. Hyperlipidemia. 8. Recent back surgery. RECOMMENDATIONS: 1. Diurese with IV Lasix. 2. Repeat echocardiography. HISTORY: This is a 74-year-old white male with past history of previous aortic valve replacement, with coronary bypass surgery in 2017 for management of aortic stenosis and atherosclerotic coronary disease. He later was found have left ventricular ejection fraction of 25%. He was admitted with progressive dyspnea and respiratory failure. Chest x-ray suggested pulmonary edema. Cardiology was consulted. He has been sick for several days and thought to have possible upper respiratory infection. He had back surgery several weeks ago for herniated disk. He was thought to have possible pneumonia and was given corticosteroids as well as antibiotics. He had progressive shortness of breath, and has been admitted for management of congestive heart failure and possible pneumonia. He is presently in the intensive care unit on BiPAP. History is obtained from the record, as he is on BiPAP presently with some respiratory distress. PAST MEDICAL HISTORY: 1. Valvular heart disease, with previous aortic valve replacement for aortic stenosis using bioprosthesis. The patient also had coronary bypass grafting. 2. Atherosclerotic coronary disease with previous coronary bypass surgery. 3. Cardiomyopathy with left ventricular ejection fraction of 25% by most recent echocardiography. 4. Hypertension. 5. Type 2 diabetes mellitus. 6. Hyperlipidemia. 7. Previous DVT. 8. Nephrolithiasis. 9. Hearing loss. PAST SURGICAL HISTORY: Also includes recent lumbar back surgery, right cataract procedure and previous pleural catheter placed for pleural effusion. ALLERGIES: He has no known drug allergies. MEDICATIONS: Prior to admission as listed. SOCIAL HISTORY: He is and retired. He lives at home. He does not smoke or use alcohol. FAMILY HISTORY: Positive for coronary disease. REVIEW OF SYSTEMS: Not readily obtainable given the patient in some respiratory discomfort on BiPAP. PHYSICAL EXAMINATION: Physical exam reveals an obese, older white male in some respiratory difficulty on BiPAP. Blood pressure 110/60, heart rate 74. HEENT: Extraocular movements intact. Neck is supple, without discernible jugular venous distention. There are no carotid bruits. Auscultation of the chest reveals bilateral inspiratory crackles. Cardiac exam reveals a regular rate and rhythm without appreciable murmur or gallop. Abdomen is soft. Bowel sounds normal. Extremities are without edema and are warm. DIAGNOSTIC DATA: Twelve-lead EKG demonstrates normal sinus rhythm and left bundle branch block. Chest x-ray demonstrates bilateral pulmonary edema. LABORATORY DATA: Includes sodium 129, potassium 4.5, chloride 90, carbon dioxide 21, BUN 23, creatinine 1.1, glucose 328. CPK 132. Troponin T 0.013. Pro B-natriuretic peptide level 10,332. White blood cell count 13.71, hematocrit 33.4, hemoglobin 10.8, platelet count 255,000. cc: MD Dejan Noble MD
[2019-09-16 06:02] LABS: AGAP 14; BUN 24 mg/dL (8-22); CALCIUM 8.3 mg/dL (8.8-10.2); CHLORIDE 94 mmol/L (98-107); COSMO 281; CREATININE 0.9 mg/dL (0.7-1.2); ESTIMATED GFR > 60; GLUCOSE 217 mg/dL (70-104); POTASSIUM 3.6 mmol/L (3.5-5.1); SODIUM 135 mmol/L (136-145); TCO2 27 mmol/L (25-35)
[2019-09-16] MEDS: HUMULIN R SUBQ SCH ×4 (06:06→20:20)
--- NOTE | 2019-09-16 07:12 | Diag Imaging Result Doc PS360 ---
EXAM: CHEST-1 VIEW 09/16/2019 HISTORY: SOB TECHNIQUE: AP portable upright at 0500 COMMENT: There has been marked improvement in the alveolar pulmonary edema present on 09/15/2019. IMPRESSION: Improved pulmonary edema. Electronically signed by Paulino Garcia 09/16/2019 7:10 AM
[2019-09-16] MEDS: VICON-C PO SCH (08:52)
[2019-09-16] MEDS: COREG PO SCH ×2 (08:52→20:20)
[2019-09-16] MEDS: ASPIRIN EC PO SCH (08:52)
[2019-09-16] MEDS: KLOR-CON PO SCH (08:52)
[2019-09-16] MEDS: LASIX IV SCH ×2 (08:52→20:20)
[2019-09-16] MEDS: THERA M PLUS PO SCH (08:52)
[2019-09-16] MEDS: ENTRESTO 49 MG-51 MG TABLET PO SCH ×2 (10:07→20:20)
--- NOTE | 2019-09-16 14:05 | ECHO REPORT ---
ORDER DATE: 09/15/2019 INTERPRETING PHYSICIAN: Dr. Fredi Mcnair ECHOCARDIOGRAPHIC MEASUREMENTS: 1. Interventricular septum: 1.1 cm. 2. Left ventricular posterior wall: 1.1 cm. 3. Diastolic diameter: 5.0 cm. 4. Left atrium: 4.2 cm. 5. Aorta: 2.8. SUMMARY OF THE 2-DIMENSIONAL IMAGIN. Bioprosthetic valve in the aortic position was stable. Mitral valve was normal. There is moderate mitral annular calcification. 2. Tricuspid valve was normal. 3. Technically suboptimal study. Poor acoustic window. 4. Pulmonic valve not well visualized. There is moderate mitral regurgitation. Peak velocity across the aortic valve was 3 m/sec. Mean gradient of 19 mmHg in keeping with bioprosthetic valve. There is no aortic regurgitation. 5. Trace tricuspid regurgitation. Peak velocity across the tricuspid valve was less than 2 m/sec. 6. Normal left ventricular cavity size. Optison was used to assess left ventricular systolic function. Estimated ejection fraction of 25 to 30 percent. 7. Endocardium not well visualized in all views. CONCLUSIONS: Normal left ventricular cavity size. Estimated ejection fraction of 25 to 30 percent. cc: MD Dejan Uriostegui MD
[2019-09-16] MEDS: SODIUM CHLORIDE 0.9% INJ SCH (17:54)
[2019-09-16] MEDS: PROTONIX IV SCH (17:55)
[2019-09-16] MEDS: ROCEPHIN 1 GM in NS 50 ML IV SCH (17:55)
[2019-09-16] MEDS: ZITHROMAX 500 MG/NS 500 MG/250 ML IVPB IV SCH (17:55)
[2019-09-16] MEDS ORDERED: NS 50 ML ONE (17:55)
[2019-09-16] MEDS: ZOCOR PO SCH (20:20)
[2019-09-16] MEDS: LOVENOX SUBQ SCH (20:20)
[2019-09-16] MEDS: MORPHINE IV PRN (20:40)
--- NOTE | 2019-09-16 21:24 | PROGRESS NOTE ---
DATE: 09/16/2019 SUBJECTIVE: Patient relates feeling much better with diuresis since last night. He is on supplemental oxygen per nasal cannula. There has been no chest pain. He denies shortness of breath on supplemental oxygen per nasal cannula. He relates that he has been having progressive dyspnea symptoms for at least a week. OBJECTIVE: Vital signs: Blood pressure 126/60, heart rate 85, oxygen saturation 98% on nasal cannula oxygen at 3 L/minute. Neck: Jugular venous distention cannot be appreciated. Chest: Auscultation of the chest reveals a few bibasilar inspiratory crackles. Cardiac Exam: Reveals an irregular rate and rhythm without appreciable murmur or gallop. Abdomen: Soft. Bowel sounds normal. Extremities: Without edema. LABORATORY DATA: Includes sodium 135, potassium 3.6, chloride 94, carbon dioxide 27, BUN 24, creatinine 0.9. Glucose 217, magnesium 2.0. Echocardiography pending. IMPRESSION: 1. Acute on chronic systolic heart failure, improving with diuresis. 2. Possible pneumonia. 3. Valvular heart disease with previous aortic valve replacement with bioprosthesis in 2017 for aortic stenosis. Patient also had coronary bypass surgery at that time. 4. Atherosclerotic coronary disease with previous coronary bypass graft in 2017. 5. Cardiomyopathy with left ventricular ejection fraction around 25%. Repeat echocardiography pending. 6. Type 2 diabetes mellitus. 7. Hypertension. 8. Hyperlipidemia. 9. Recent back surgery. RECOMMENDATIONS: 1. Continue to diurese with IV Lasix. 2. Followup echocardiography. cc: MD Dejan Noble MD
--- NOTE | 2019-09-16 22:03 | PROGRESS NOTE ---
DATE: 09/16/2019 SUBJECTIVE: The patient is a lot better after diuresis, off BiPAP machine. Chest x-ray some improvement and I appreciated the Cardiology consult. He is still coughing. EXAM: Afebrile and heart rate is 79, blood pressure is stable.Chest: Some rhonchi on the left side. Heart: Sounds are distant. Abdomen: Belly is soft, nontender. No peripheral edema. Briggs was placed. INVESTIGATIONS: SMA 7: Sodium 135, potassium 3.6, BUN 24, creatinine 0.9, glucose 332. OTHER INVESTIGATIONS: EKG: Normal sinus rhythm with Left bundle. Chest x-ray: Improving pulmonary edema. Echocardiographic report: EF is 25 to 30%, stable bioprosthetic valve, moderate mitral regurgitation. ASSESSMENT AND PLAN: 1. Left upper lobe pneumonia. 2. Congestive heart failure due to systolic dysfunction. 3. Left bundle. 4. Status post bioprosthetic valve. 5. Recent back surgery. 6. Deafness. 7. Diabetes. PLAN OF CARE: 1. Continue IV Lasix and he is on Coreg, Entresto. 2. Continue IV antibiotics with ceftriaxone and Zithromax. 3. Deep vein thrombosis and gastrointestinal prophylaxis as per order sheet. 4. Hyperlipidemia on Zocor. 5. Check the labs in the morning as well as chest x-ray. 6. I spoke to the on the phone. Things are somewhat better and I changed the diet to the ADA diet and will follow up. LEVEL OF DOCUMENTATION: 25 minutes. cc: Dejan Arceo MD
[2019-09-17] MEDS: MORPHINE IV PRN (03:30)
[2019-09-17] MEDS: ALBUTEROL NEB INH SCH ×6 (03:52→23:30)
[2019-09-17] MEDS: HUMULIN R SUBQ SCH ×4 (06:03→20:19)
[2019-09-17 06:53] LABS: AGAP 15; BUN 22 mg/dL (8-22); CALCIUM 8.3 mg/dL (8.8-10.2); CHLORIDE 94 mmol/L (98-107); COSMO 280; CREATININE 0.9 mg/dL (0.7-1.2); ESTIMATED GFR > 60; GLUCOSE 156 mg/dL (70-104); POTASSIUM 3.8 mmol/L (3.5-5.1); SODIUM 137 mmol/L (136-145); TCO2 28 mmol/L (25-35)
--- NOTE | 2019-09-17 07:16 | Diag Imaging Result Doc PS360 ---
EXAM: CHEST-1 VIEW 09/17/2019 HISTORY: SOB TECHNIQUE: AP portable at 0545 COMMENT: There is cardiomegaly. There is alveolar opacification in the parahilar portions of both upper lobes. This may be slightly improved since the previous study of 09/16/2019. IMPRESSION: Improved pulmonary edema and/or pneumonia. Electronically signed by Paulino Garcia 09/17/2019 7:14 AM
[2019-09-17] MEDS: ENTRESTO 49 MG-51 MG TABLET PO SCH ×2 (09:22→20:19)
[2019-09-17] MEDS: KLOR-CON PO SCH (09:22)
[2019-09-17] MEDS: NORCO-5 PO PRN (09:22)
[2019-09-17] MEDS: THERA M PLUS PO SCH (09:22)
[2019-09-17] MEDS: LASIX IV SCH (09:22)
[2019-09-17] MEDS: COREG PO SCH ×2 (09:23→20:19)
[2019-09-17] MEDS: ASPIRIN EC PO SCH (09:23)
[2019-09-17] MEDS: VICON-C PO SCH (09:23)
[2019-09-17] MEDS: MIRALAX PO SCH (09:23)
[2019-09-17] MEDS: ROCEPHIN 1 GM in NS 50 ML IV SCH (16:14)
[2019-09-17] MEDS: PROTONIX IV SCH (16:14)
--- NOTE | 2019-09-17 17:08 | PROGRESS NOTE ---
DATE: 09/17/2019 SUBJECTIVE: Patient continues to feel better with diuresis. He denies chest discomfort on oxygen per nasal cannula. There has been no chest pain. He has some cough when he sits up and takes a deep breath. OBJECTIVE: Vital Signs: Blood pressure 121/55, heart rate 79, oxygen saturation 99% on nasal cannula oxygen 3 L/minute. Neck: There is no significant jugular venous distention. Chest: Auscultation of the chest reveals a few inspiratory crackles in the bases which seems to diminish as he sits up, takes a deep breath and coughs. Cardiac: Reveals a regular rate and rhythm with a grade 1-2/6 systolic murmur at the right upper sternal border. No gallop could be appreciated. Extremities: Without edema. LABORATORY DATA: Includes sodium 137, potassium 3.8, chloride 94, carbon dioxide 28, BUN 22, creatinine 0.9, glucose 156. IMPRESSION: 1. Acute on chronic systolic heart failure improving with diuresis. 2. Possible pneumonia. 3. Valvular heart disease with previous aortic valve replacement with bioprosthesis in 2017 for aortic stenosis along with coronary bypass grafting. 4. Atherosclerotic coronary disease. 5. Cardiomyopathy with left ventricular ejection fraction around 25% in the past. Echocardiography this admission indicates left ventricular ejection fraction around 25 to 30 percent. 6. Type 2 diabetes mellitus. 7. Hypertension. 8. Hyperlipidemia. 9. Recent back surgery. RECOMMENDATIONS: 1. Agree with reduction in IV Lasix to daily. 2. Patient appears to have clinically improved sufficient to be transferred to the PVC unit. 3. Mobilization may be useful at this point. cc: MD Dejan Noble MD
[2019-09-17] MEDS: ZITHROMAX 500 MG/NS 500 MG/250 ML IVPB IV SCH (17:37)
[2019-09-17] MEDS: LOVENOX SUBQ SCH (20:19)
[2019-09-17] MEDS: ZOCOR PO SCH (20:19)
--- NOTE | 2019-09-17 21:06 | PROGRESS NOTE ---
DATE: 09/17/2019 SUBJECTIVE: The patient has a little bit confusion. He is eating well. He is off insulin pump and complains of back pain. Morphine is not helping. Breathing is substantially improved. Coughing. OBJECTIVE: Vital signs: On examination, temperature is 98 degrees vitals are stable. Inputs and outputs are negative, so far -5 L. HEENT: Exam within normal limits. Lungs: Some rhonchi on the left side. Heart: Regular heart sounds. Abdomen: Belly is soft, nontender. Extremities: No peripheral edema. LABORATORY DATA: Sodium 137, potassium 3.8, BUN 22, creatinine 0.9, glucose 230. Cardiac enzymes were negative. Chest x-ray was improving. Improved pulmonary edema/pneumonia. ASSESSMENT AND PLAN: 1. Left upper lobe pneumonia. Rocephin and Zithromax. 2. Ischemic cardiomyopathy with systolic heart failure. Intravenous Lasix decreased to once a day. Continue on Coreg 3.125 p.o. b.i.d. and Entresto 49/51 p.o. b.i.d. 3. Chronic pain in the back. We will initiate [place] as needed, discontinue morphine. 4. Congestive heart failure. Decreased intravenous Lasix to once daily. 5. Deep venous thrombosis nd gastrointestinal prophylaxis as per order sheet. 6. Constipation, on MiraLAX prophylactically. 7. Recent L-spine surgery for herniated disk at L5-S1 by Dr. Cantu. Out of the bed with physical therapy. Planning to transfer to step-down unit. 8. Mental confusion due to delirium. Continue to monitor. 9. Diabetes. Change the diet to heart healthy to diabetic diet. Sliding scale with insulin coverage and slowly start on insulin pump once his situation improves. LEVEL OF DOCUMENTATION: 25 minutes. cc: Dejan Arceo MD
[2019-09-18] MEDS: NORCO-5 PO PRN ×2 (00:55→10:19)
[2019-09-18] MEDS: ALBUTEROL NEB INH SCH ×6 (03:34→23:08)
[2019-09-18] MEDS: HUMULIN R SUBQ SCH ×3 (06:10→20:47)
[2019-09-18 06:35] LABS: AGAP 14; BUN 18 mg/dL (8-22); CALCIUM 8.2 mg/dL (8.8-10.2); CHLORIDE 93 mmol/L (98-107); COSMO 282; CREATININE 0.8 mg/dL (0.7-1.2); ESTIMATED GFR > 60; GLUCOSE 274 mg/dL (70-104); POTASSIUM 3.8 mmol/L (3.5-5.1); SODIUM 135 mmol/L (136-145); TCO2 28 mmol/L (25-35)
--- NOTE | 2019-09-18 07:10 | Diag Imaging Result Doc PS360 ---
EXAM: CHEST-1 VIEW HISTORY: SOB TECHNIQUE: Single view COMPARISON: 09/17/2019 FINDINGS: A heart valve has been replaced. Heart is borderline mildly prominent and there is a tiny left effusion. Pulmonary edema versus infiltrates remain without improvement. IMPRESSION: No interval improvement Electronically signed by Gerald Schuster 09/18/2019 7:08 AM
[2019-09-18] MEDS: KLOR-CON PO SCH (10:19)
[2019-09-18] MEDS: ASPIRIN EC PO SCH (10:20)
[2019-09-18] MEDS: COREG PO SCH ×2 (10:20→20:47)
[2019-09-18] MEDS: ENTRESTO 49 MG-51 MG TABLET PO SCH ×2 (10:21→20:47)
[2019-09-18] MEDS: VICON-C PO SCH (10:21)
[2019-09-18] MEDS: LASIX IV SCH (10:25)
[2019-09-18] MEDS: MIRALAX PO SCH (10:25)
[2019-09-18] MEDS: THERA M PLUS PO SCH (10:25)
[2019-09-18] MEDS: ROBITUSSIN-DM PO PRN (11:13)
[2019-09-18 12:22] LABS: ALLEN TEST YES; BE 5.8 mmoll (-3.0-3.0); BLOOD TYPE ARTERIAL; HCO3-(ACT) 29.4 mmoll (20.0-26.0); O2(CT) 11.3 mL/dL (15.0-23.0); PCO2(98.6) 40 mmHg (35-45); PO2(98.6) 66 mmHg (60-100); SAMPLE BLOOD; SAO2 96.8 % (95.0-100.0); THB 8.5 g/dL (11.5-17.4); pH(98.6) 7.48 (7.35-7.45)
[2019-09-18 12:23] LABS: MODALITY ROOM AIR
--- NOTE | 2019-09-18 13:21 | Diag Imaging Result Doc PS360 ---
EXAM: CT HEAD W/O CONTRAST HISTORY: ms change TECHNIQUE: CT head without contrast COMPARISON: 01/11/2014 FINDINGS: No parenchymal hemorrhage. No epidural or subdural hematoma. No subarachnoid hemorrhage. There is mild atrophy with mild chronic microvascular ischemic changes. No mass identified on this noncontrasted exam. No hydrocephalus. There is a small amount of fluid inferiorly in the right mastoid sinus and mild mucosal thickening in the left maxillary sinus. IMPRESSION: 1.No hemorrhage 2.Mild atrophy with chronic microvascular ischemic changes 3.Mild sinusitis This exam was performed using automated exposure control, adjustment of mA or kV according to patient size, and/or use of iterative reconstruction technique. Electronically signed by Gerald Schuster 09/18/2019 1:19 PM
--- NOTE | 2019-09-18 13:27 | Diag Imaging Result Doc PS360 ---
EXAM: LUMBAR SPINE HISTORY: fall TECHNIQUE: AP and lateral with obliques, six views COMPARISON: None. FINDINGS: Prominent degenerative bone spurring throughout the lumbar spine. There has been surgery at L4-5. Vacuum disc at L2-3. No subluxation. No fracture. IMPRESSION: No acute bony injury. Electronically signed by Gerald Schuster 09/18/2019 1:25 PM
[2019-09-18] MEDS ORDERED: LASIX IV ONE (15:00)
--- NOTE | 2019-09-18 15:24 | PROGRESS NOTE ---
DATE: 09/18/2019 SUBJECTIVE: I am seeing Mr. Baer in Dr. Arceo's absence. Family is in attendance. It has come to their attention that the patient had 2 falls while he was at home after his hospitalization in [place] for the back surgery. He returned home and had 2 falls prior to coming in here. He has had apparent confusion and some visual hallucinations, worsening over the recent 2 days. Apparently, he bumped his head by family report twice while out of the hospital. OBJECTIVE: T-max 99 degrees, pulse 81, respirations 23, blood pressure 137/60, O2 saturation on 2 L 97%. CV: RRR with 3/6 murmur. Lungs: Diminished breath sounds at the bases, possible crackles at the left lung base. Abdomen: Soft. Active bowel sounds. No point tenderness. Extremities: No calf tenderness, cords or edema. Neuro: The patient is alert and oriented x3. When prompted by family members he begins to tell about seeing objects in the room. Moves all extremities well. No focal deficits. Alert and oriented x2. No CBC was obtained this morning. Sodium 135, potassium 3.8, chloride 93, CO2 28, BUN 18, creatinine 0.8. Blood sugars in the 200s to low 300s. Calcium 8.2. Reviewed an ABG that showed hypercapnia from 09/15/2019. Chest x-ray today reveals no improvement and has a heart valve in place with borderline prominent heart enlargement. Left pleural effusion. Tiny pulmonary edema versus infiltrates. The patient just received his Lasix at 10:30 this morning. I and Os have been negative daily around 1500 mL to 2000 mL, but over the past 24 hours he is positive for 650 mL. ASSESSMENT: 1. Left pneumonia. 2. Ischemic cardiomyopathy with acute on chronic systolic CHF. 3. Chronic back pain, having had back surgery on 09/07/2019 per in [place]. 4. Delirium 5. History of recent hypercapnia. 6. Diabetes mellitus. PLAN: At this time we will increase the sliding scale insulin dosing slightly. We will check LS spine x-rays due to the outpatient falls he had outpatient and check CT head as well due to the falls and possible head trauma. We will continue IV Rocephin and Zithromax. I am going to give him an extra dose of Lasix later this afternoon. He is on Coreg, aspirin, Zocor, Entresto, prophylactic doses of Lovenox, [place] for pain and physical therapy is working with the patient regarding his back and another back brace is being procured. Repeat labs to include CBC, BMP in the morning, along with proBNP and check ABG now. Notably, his blood cultures are negative thus far from admission. cc: MD Dejan Frazier MD [facility]
[2019-09-18] MEDS: PROTONIX IV SCH (17:05)
[2019-09-18] MEDS: ROCEPHIN 1 GM in NS 50 ML IV SCH (17:16)
[2019-09-18] MEDS: ZITHROMAX 500 MG/NS 500 MG/250 ML IVPB IV SCH (17:48)
[2019-09-18] MEDS: SEROQUEL PO SCH (20:47)
[2019-09-18] MEDS: ZOCOR PO SCH (20:47)
[2019-09-18] MEDS: LOVENOX SUBQ SCH (20:47)
--- NOTE | 2019-09-18 21:51 | PROGRESS NOTE ---
DATE: 09/18/2019 SUBJECTIVE: The patient continues without shortness of breath, whether he is wearing oxygen or not. There has been no chest pain. He has been having some tendency for not sleeping at night as well as agitation at night, as well as daytime confusion and some hallucinations. This has been going on ever since his back surgery, but it is getting worse of late and is considerably worse today since he has been in the hospital. His family expresses some concern that he very well may have some underlying dementia, as he apparently has had some memory issues. At times. OBJECTIVE: Vital Signs: Blood pressure 132/58, heart rate 80, oxygen saturation 96%. Neck: Jugular distention cannot be appreciated. Lungs: Auscultation of the chest reveals scant inspiratory crackles in the bases. Cardiac: Reveals an irregular rate and rhythm with a grade 1/6 to 2/6 systolic murmur at the right upper sternal border. Gallop could not could not be appreciated. Extremities: Without edema. LABORATORY DATA: Includes arterial blood gas with a pH of 7.4, pCO2 of 40, PO2 of 66 on room air. Sodium 135, potassium 3.8, chloride 93, carbon dioxide 28, BUN 18, creatinine 0.8, glucose 274. Echocardiography this admission demonstrates left ventricular ejection fraction of 25% to 30% and adequately functioning aortic valve bioprosthesis. IMPRESSION: 1. Acute on chronic systolic heart failure. Further diuresis. 2. Possible pneumonia 3. Valvular heart disease with previous aortic valve replacement with bioprosthesis in 2017 along with coronary bypass grafting. 4. Atherosclerotic coronary disease. 5. Cardiomyopathy with left ventricular ejection fraction around 25% to 30%. This is a chronic finding. 6. Agitation, confusion, and some hallucinations which suggest encephalopathy. Etiology not clear. Patient very well may have some underlying cognitive impairment that is now aggravated by his current hospital stay. 7. Type 2 diabetes mellitus. 8. Hypertension. 9. Hyperlipidemia. 10. Recent back surgery. RECOMMENDATIONS: 1. Agree with additional IV Lasix this afternoon. Otherwise continue Lasix daily IV. 2. Continue to mobilize as tolerated. 3. Try and pursue sleep hygiene while in the hospital. Consider a calming agent such as Seroquel if needed. cc: MD Dejan Noble MD
[2019-09-19] MEDS: ROBITUSSIN-DM PO PRN ×3 (02:40→22:44)
[2019-09-19] MEDS: ALBUTEROL NEB INH SCH ×6 (03:28→22:52)
[2019-09-19] MEDS: NORCO-5 PO PRN ×2 (04:52→12:38)
[2019-09-19] MEDS: HUMULIN R SUBQ SCH ×4 (06:00→20:42)
[2019-09-19 06:19] LABS: BASO# 0.03 X1000 (0.0-0.2); BASO% 0.4 % (0.0-0.8); EOS# 0.27 X1000 (0.0-0.7); EOS% 3.5 % (0.0-10.0); HEMATOCRIT 31.4 % (42.0-52.0); IMM GRAN# 0.02 X1000 (0.0-0.04); IMM GRAN% 0.3 % (0.0-0.5); LYMPH# 2.08 X1000 (1.2-3.4); MCH 28.7 PG (27-31); MCHC 31.8 g/dL (33-37); MCV 90.2 FL (81-99); MONO# 0.52 X1000 (0.11-0.59); MONO% 6.7 % (1.7-9.3); MPV 10.3 FL (7.4-10.4); NEUT# 4.79 X1000 (1.4-6.5); NEUT% 62.1 % (42.2-75.2); PLT 370 X1000 (130-400); RBC 3.48 XMIL (4.7-6.1); RDW 12.6 % (11.5-14.5); WBC 7.71 X1000 (4.8-10.8)
[2019-09-19 06:53] LABS: AGAP 15; BUN 17 mg/dL (8-22); CALCIUM 8.5 mg/dL (8.8-10.2); CHLORIDE 99 mmol/L (98-107); COSMO 286; ESTIMATED GFR > 60; GLUCOSE 151 mg/dL (70-104); SODIUM 141 mmol/L (136-145); TCO2 27 mmol/L (25-35)
[2019-09-19] MEDS: MIRALAX PO SCH (10:06)
[2019-09-19] MEDS: ENTRESTO 49 MG-51 MG TABLET PO SCH ×2 (10:07→20:36)
[2019-09-19] MEDS: COREG PO SCH ×2 (10:07→20:35)
[2019-09-19] MEDS: ASPIRIN EC PO SCH (10:07)
[2019-09-19] MEDS: THERA M PLUS PO SCH (10:08)
[2019-09-19] MEDS: VICON-C PO SCH (10:08)
[2019-09-19] MEDS: KLOR-CON PO SCH (10:08)
[2019-09-19] MEDS: LASIX IV SCH (10:08)
--- NOTE | 2019-09-19 11:07 | PROGRESS NOTE ---
DATE: 09/19/2019 SUBJECTIVE: Patient did not rest well last night but is sleeping well this morning. The Seroquel has helped him rest overall. OBJECTIVE: Vital signs: T-max 99.1 degrees, pulse 79, respirations 20, blood pressure 126/53, O2 saturation on room air 96%. CV: Regular rate and rhythm with 3/6 murmur. Lungs: Fairly clear. Abdomen: Active bowel sounds. Nontender. Extremities: No calf tenderness, cords or edema. Neurologic: The patient is sleeping. I did not arouse him. He had a restless night overall. IMAGING AND LABORATORY DATA: Labs show sodium 141, potassium 4.0, chloride 99, CO2 27, BUN 17, creatinine 1.0, glucose 151. Blood sugars coming down. They are in the 100s now, having been in the 200s to 300s earlier. ProBNP is elevated at 3543. White count 7, hemoglobin 10, platelets 378,000. ABG yesterday on room air showed pH 7.48, pCO2 40, PO2 66, HCO3 29.4, O2 saturation 96.8%. LS spine x-ray showed findings of degenerative bone spurring of lumbar spine and postsurgical changes but no acute bony injury. CT head done yesterday due to delirium revealed no hemorrhage, mild atrophy and chronic microvascular ischemic changes. Mild sinusitis. ASSESSMENT: 1. Left pneumonia. 2. Ischemic cardiomyopathy with acute on chronic systolic congestive heart failure. 3. Chronic back pain and recent surgery by neurosurgeon in [place]. 4. Delirium. 5. Diabetes mellitus. PLAN: Continue IV Rocephin and Zithromax, Lasix, Coreg, aspirin, Zocor, Entresto, prophylactic doses of Lovenox, [place] as needed for pain, and physical therapy. Dr. [place] had ordered some Seroquel, and that has helped him rest overall, and we will continue that at night. Continue to follow the patient clinically. cc: MD Dejan Frazier MD
--- NOTE | 2019-09-19 15:47 | PROGRESS NOTE ---
DATE: 09/19/2019 SUBJECTIVE: The patient did not sleep well last night but seems better today according to family. He is no longer agitated. He had some brief hallucinations. He denies shortness of breath or chest discomfort on room air. OBJECTIVE: Blood pressure 128/55, heart rate 84, oxygen saturation 94%. There is no significant jugular venous distention.Chest: Clear to auscultation bilaterally. Cardiac exam: Reveals a regular rate and rhythm with a grade 1-2/6 systolic murmur at the right upper sternal border. Gallop could not be appreciated. Extremities: Without edema. LABORATORY DATA: Includes a white blood cell count 7.74, hematocrit 31.4, hemoglobin 10.0, platelet count 370,000. Sodium 141, potassium 4.0, chloride 99, carbon dioxide 27, BUN 17, creatinine 1.0, glucose 155. IMPRESSION: 1. Acute on chronic systolic heart failure. 2. Possible pneumonia. 3. Valvular heart disease with previous aortic valve replacement with bioprosthesis 2017 along with coronary bypass grafting. 4. Atherosclerotic coronary disease. 5. Cardiomyopathy with left ventricular ejection fraction 25 to 30 percent. The patient has chronic severely depressed left ventricular systolic function. 6. Some tendency for agitation and confusion as well as some hallucinations. This seems to be improving. Patient may very well have some underlying cognitive impairment that is now aggravated by his current condition and hospital stay. 7. Type 2 diabetes mellitus. 8. Hypertension. 9. Hyperlipidemia. 10. Recent back surgery. RECOMMENDATIONS: 1. Additional IV Lasix this afternoon. 2. Transition to oral Lasix tomorrow. 3. Repeat chest x-ray tomorrow. 4. Conservative cardiovascular management overall. 5. Consider merits of intermediate facility for rehabilitation. cc: MD Dejan Noble MD
[2019-09-19] MEDS: PROTONIX IV SCH (16:41)
[2019-09-19] MEDS: ROCEPHIN 1 GM in NS 50 ML IV SCH (16:45)
[2019-09-19] MEDS ORDERED: LASIX IV ONE (17:00)
[2019-09-19] MEDS: ZITHROMAX 500 MG/NS 500 MG/250 ML IVPB IV SCH (18:07)
[2019-09-19] MEDS: SEROQUEL PO SCH (20:35)
[2019-09-19] MEDS: ZOCOR PO SCH (20:35)
[2019-09-19] MEDS: LOVENOX SUBQ SCH (20:36)
[2019-09-20] MEDS: NORCO-5 PO PRN ×3 (01:38→16:20)
[2019-09-20] MEDS: ALBUTEROL NEB INH SCH ×6 (03:08→23:00)
[2019-09-20] MEDS: HUMULIN R SUBQ SCH ×4 (06:00→21:38)
--- NOTE | 2019-09-20 08:40 | Diag Imaging Result Doc PS360 ---
CHEST-2 VIEWS - 09/20/2019 INDICATION: CHF, possible pneumonia COMPARISON: 09/18/2019 FINDINGS: Stable sternotomy wires. Stable aortic valve replacement. Heart size and pulmonary vascularity remain normal. There has been significant improvement in the bilateral central infiltrates/edema. No pneumothorax or significant pleural effusion. IMPRESSION: Improvement in the central infiltrates/pulmonary edema. Electronically signed by Celso Emmanuel 09/20/2019 8:37 AM
[2019-09-20] MEDS: ROBITUSSIN-DM PO PRN ×3 (10:01→19:08)
[2019-09-20] MEDS: ENTRESTO 49 MG-51 MG TABLET PO SCH ×2 (10:02→21:38)
[2019-09-20] MEDS: ASPIRIN EC PO SCH (10:02)
[2019-09-20] MEDS: KLOR-CON PO SCH (10:02)
[2019-09-20] MEDS: COREG PO SCH ×2 (10:02→21:38)
[2019-09-20] MEDS: VICON-C PO SCH (10:02)
[2019-09-20] MEDS: LASIX PO SCH (10:02)
[2019-09-20] MEDS: MIRALAX PO SCH (10:02)
[2019-09-20] MEDS: THERA M PLUS PO SCH (10:02)
[2019-09-20] MEDS: ROCEPHIN 1 GM in NS 50 ML IV SCH (16:00)
[2019-09-20] MEDS: SODIUM CHLORIDE 0.9% INJ SCH (16:20)
[2019-09-20] MEDS: PROTONIX IV SCH (16:20)
[2019-09-20] MEDS: ZITHROMAX 500 MG/NS 500 MG/250 ML IVPB IV SCH (16:30)
--- NOTE | 2019-09-20 16:42 | PROGRESS NOTE ---
DATE: 09/20/2019 SUMMARY: The patient denies chest discomfort or shortness of breath on room air. His confusion seems to be considerably improved. He is ambulating with a walker and with physical therapy without shortness of breath. OBJECTIVE: Vital Signs: Blood pressure 109/55, heart rate 83, oxygen saturation 97% on room air. Neck: There is no significant jugular venous distention. Chest: Clear to auscultation. Cardiac: Reveals a regular rate and rhythm with a grade 2/6 systolic murmur at the right upper sternal border. No gallop could be appreciated. Abdomen: Soft. Bowel sounds are normal. Extremities: Without edema. IMAGING: Chest x-ray demonstrates improvement in pulmonary edema with diuresis. LABORATORY DATA: Includes sodium 141, potassium 4.0, chloride 99, carbon dioxide 27, BUN 17, creatinine 1.0, glucose 151. IMPRESSIONS: 1. Acute on chronic systolic heart failure, improved with diuresis. 2. Valvular heart disease with previous aortic valve replacement with bioprosthesis in 2017 along with coronary bypass grafting. 3. Atherosclerotic coronary disease. 4. Cardiomyopathy with left ventricular ejection fraction of 25 to 30%. This appears to be chronic, severely depressed left ventricular systolic function and unchanged from previous echocardiography. 5. Some tendency for agitation and confusion, along with hallucinations during hospital stay. This has improved. However, there may be some underlying cognitive impairment. 6. Type 2 diabetes mellitus. 7. Hypertension. 8. Hyperlipidemia. 9. Recent back surgery. RECOMMENDATIONS: 1. Continue Lasix orally daily. Further diuresis does not appear to be needed. 2. Continue current cardiovascular regimen otherwise unchanged. 3. The patient appears to be sufficiently improved from a cardiovascular standpoint to go home in the next 24 hours. I will see him further on an as needed basis. cc: MD Dejan Noble MD
--- NOTE | 2019-09-20 21:30 | PROGRESS NOTE ---
DATE: 09/20/2019 SUBJECTIVE: The patient's breathing is much better. Complains of back pain. Tony needs to come off since this back surgery 10 days ago. is at bedside. REVIEW OF SYSTEMS: None reported. PHYSICAL EXAMINATION: Vital Signs: Temperature is 97.9 degrees, pulse 84, blood pressure 112/64, 99% on room air. Intake and output negative -665. Weight 198 pounds. HEENT: Within normal limits. Neck: Supple. Chest: Bilateral air entry. Heart: Sounds are regular. Abdomen: Belly is soft, nontender. Extremities: No peripheral edema. INVESTIGATIONS: Blood sugars 160. ProBNP 3500. ASSESSMENT AND PLAN: 1. Left upper lobe pneumonia. Continues to get better on intravenous antibiotics with ceftriaxone and Zithromax. 2. Congestive heart failure, decompensated, acute systolic heart failure due to ischemic cardiomyopathy. Continue on Lasix, Entresto, Coreg 3.125 orally daily, aspirin. 3. Status post bioprosthetic valve replacement, stable. 4. Type 2 diabetes, on insulin pump. Currently on sliding scale. 5. Chronic back pain, left sciatica, status post back surgery. We will remove the tony. 6. Deep venous thrombosis and gastrointestinal prophylaxes. Out of the bed with physical therapy. Based on his progress, we will discuss with the family about going home with Home Health Rehab. 7. Mental confusion. Delirium better. LEVEL OF DOCUMENTATION: 25 minutes. cc: Dejan Arceo MD
[2019-09-20] MEDS: ZOCOR PO SCH (21:38)
[2019-09-20] MEDS: SEROQUEL PO SCH (21:38)
[2019-09-20] MEDS: LOVENOX SUBQ SCH (21:40)
[2019-09-21] MEDS: ROBITUSSIN-DM PO PRN ×5 (02:31→23:33)
[2019-09-21] MEDS: ALBUTEROL NEB INH SCH ×6 (03:11→23:20)
[2019-09-21] MEDS: NORCO-5 PO PRN ×3 (06:50→19:02)
[2019-09-21] MEDS: HUMULIN R SUBQ SCH ×4 (06:52→20:10)
[2019-09-21] MEDS: ASPIRIN EC PO SCH (08:53)
[2019-09-21] MEDS: TESSALON PO SCH ×3 (08:53→20:10)
[2019-09-21] MEDS: THERA M PLUS PO SCH (08:53)
[2019-09-21] MEDS: ENTRESTO 49 MG-51 MG TABLET PO SCH ×2 (08:53→20:10)
[2019-09-21] MEDS: COREG PO SCH ×2 (08:53→20:11)
[2019-09-21] MEDS: LASIX PO SCH (08:53)
[2019-09-21] MEDS: KLOR-CON PO SCH (08:53)
[2019-09-21] MEDS: MUCINEX PO SCH ×2 (08:53→20:11)
[2019-09-21] MEDS: VICON-C PO SCH (08:53)
[2019-09-21] MEDS: MIRALAX PO SCH (08:54)
--- NOTE | 2019-09-21 11:14 | PROGRESS NOTE ---
DATE: 09/21/2019 SUBJECTIVE: Patient has had some cough which is minimally productive. He denies shortness of breath or chest discomfort on room air. OBJECTIVE: vital signs: Blood pressure 108/45, heart rate 82, oxygen saturation 95% on room air. neck: There is no significant jugular venous distention. Chest: Clear to auscultation bilaterally. Cardiac: Reveals a regular rate and rhythm with a grade 2/6 systolic murmur at the right upper sternal border. Extremities: Without edema. IMPRESSION: 1. Acute on chronic systolic heart failure improved with diuresis. 2. Valvular heart disease with previous aortic valve replacement with bioprosthesis in 2017 along with coronary bypass grafting. 3. Atherosclerotic coronary disease. 4. Chronic systolic heart failure with cardiomyopathy and left ejection fraction 25% to 30%. 5. Type 2 diabetes mellitus. 6. Hypertension. 7. Hyperlipidemia. 8. Recent back surgery. 9. Suspect tendency for atelectasis given cough and prolonged tendency for bed rest. RECOMMENDATIONS: 1. Continue current oral Lasix. Further diuresis does not appear to be needed. 2. Gently increase carvedilol as tolerated. 3. Patient appears sufficiently improved from a cardiovascular standpoint to go home soon. I will see him further on an as needed basis. cc: MD Dejan Noble MD
--- NOTE | 2019-09-21 14:05 | PROGRESS NOTE ---
DATE: 09/21/2019 SUBJECTIVE: The patient complains of cough, dry, and continues to have back pain. OBJECTIVE: On examination, temp is 98 degrees, pulse is 76, blood pressure is 98/43.HEENT: Within normal limits. Chest is clear. Heart sounds are regular. Belly is soft, nontender. [place] removed from the back. I's and O's positive 1.5 L. LABS: None reported. Blood sugars running a little bit high. ASSESSMENT AND PLAN: 1. Left upper lobe pneumonia, slowly improving on Rocephin and Zithromax. 2. Nocturnal cough. Continue symptomatic treatment with Mucinex and Tessalon. 3. Chronic back pain. [place] as needed along with physical therapy. 4. Acute ischemic chronic systolic heart failure, euvolemic and continue on Entresto, Coreg. 5. DVT. GI prophylaxis. 6. Delirium with confusion. Seroquel as needed. Social service consult and will follow up. 7. Diabetes on insulin sliding scale with insulin coverage. LEVEL OF DOCUMENTATION: 25 minutes. cc: Dejan Arceo MD
[2019-09-21] MEDS: ROCEPHIN 1 GM in NS 50 ML IV SCH (16:48)
[2019-09-21] MEDS: PROTONIX IV SCH (16:48)
[2019-09-21] MEDS: ZITHROMAX 500 MG/NS 500 MG/250 ML IVPB IV SCH (16:48)
[2019-09-21] MEDS: SODIUM CHLORIDE 0.9% INJ SCH (16:48)
[2019-09-21] MEDS: ZOCOR PO SCH (20:11)
[2019-09-21] MEDS: SEROQUEL PO SCH (20:11)
[2019-09-21] MEDS: LOVENOX SUBQ SCH (20:11)
[2019-09-22] MEDS: NORCO-5 PO PRN ×3 (02:52→20:11)
[2019-09-22] MEDS: ROBITUSSIN-DM PO PRN ×5 (02:52→20:19)
[2019-09-22] MEDS: ALBUTEROL NEB INH SCH ×6 (03:21→22:54)
[2019-09-22] MEDS: HUMULIN R SUBQ SCH ×4 (06:26→20:12)
[2019-09-22] MEDS: LASIX PO SCH (08:45)
[2019-09-22] MEDS: ENTRESTO 49 MG-51 MG TABLET PO SCH ×2 (08:45→20:11)
[2019-09-22] MEDS: MIRALAX PO SCH (08:45)
[2019-09-22] MEDS: MUCINEX PO SCH ×2 (08:45→20:11)
[2019-09-22] MEDS: ASPIRIN EC PO SCH (08:45)
[2019-09-22] MEDS: VICON-C PO SCH (08:45)
[2019-09-22] MEDS: THERA M PLUS PO SCH (08:45)
[2019-09-22] MEDS: KLOR-CON PO SCH (08:45)
[2019-09-22] MEDS: COREG PO SCH ×2 (08:45→20:12)
[2019-09-22] MEDS: TESSALON PO SCH ×3 (08:45→20:11)
--- NOTE | 2019-09-22 11:15 | PROGRESS NOTE ---
DATE: 09/22/2019 SUBJECTIVE: The patient says he feels a little bit better. He still has a dry cough. OBJECTIVE: Vital signs showed blood pressure 123/55, respirations 21, pulse is 71, temperature is 98.2 degrees Fahrenheit. Oxygen saturation on room air is 98%. HEENT: He is normocephalic. EOMs intact. PERRLA. Nasal clear. Lungs have a few rales anteriorly. Heart is regular rate and rhythm without murmurs, gallops or friction rubs. Abdomen is soft. Active bowel sounds. No organomegaly or tenderness. Neurologic: Exam intact grossly. DIAGNOSTIC DATA: Last chest x-ray was on 09/20/2019 which showed a little improvement. ASSESSMENT: 1. Left upper lobe pneumonia, improving. 2. Nocturnal cough. 3. Chronic back pain. 4. Acute ischemic chronic systolic heart failure. 5. Deep venous thrombosis. 6. Confusion with altered mental status, now better. 7. Diabetes mellitus. PLAN: Continue support. cc: MD Dejan Parada Jr, MD
[2019-09-22] MEDS: ZITHROMAX 500 MG/NS 500 MG/250 ML IVPB IV SCH (16:48)
[2019-09-22] MEDS: ROCEPHIN 1 GM in NS 50 ML IV SCH (16:48)
[2019-09-22] MEDS: PROTONIX IV SCH (16:49)
[2019-09-22] MEDS: LOVENOX SUBQ SCH (20:11)
[2019-09-22] MEDS: SEROQUEL PO SCH (20:11)
[2019-09-22] MEDS: ZOCOR PO SCH (20:11)
[2019-09-23] MEDS: ROBITUSSIN-DM PO PRN ×4 (00:08→20:49)
[2019-09-23] MEDS: NORCO-5 PO PRN ×2 (02:08→08:37)
[2019-09-23] MEDS: ALBUTEROL NEB INH SCH ×6 (03:20→22:52)
[2019-09-23] MEDS: HUMULIN R SUBQ SCH ×4 (06:23→20:48)
[2019-09-23] MEDS: KLOR-CON PO SCH (09:12)
[2019-09-23] MEDS: ASPIRIN EC PO SCH (09:12)
[2019-09-23] MEDS: VICON-C PO SCH (09:12)
[2019-09-23] MEDS: TESSALON PO SCH ×3 (09:12→20:47)
[2019-09-23] MEDS: MUCINEX PO SCH ×2 (09:12→20:47)
[2019-09-23] MEDS: ENTRESTO 49 MG-51 MG TABLET PO SCH ×2 (09:12→20:47)
[2019-09-23] MEDS: LASIX PO SCH (09:13)
[2019-09-23] MEDS: THERA M PLUS PO SCH (09:13)
[2019-09-23] MEDS: MIRALAX PO SCH (09:13)
[2019-09-23] MEDS: COREG PO SCH ×2 (09:13→20:47)
[2019-09-23] MEDS: ULTRACET 37.5MG/325MG PO PRN ×2 (14:11→20:47)
[2019-09-23] MEDS: ROCEPHIN 1 GM in NS 50 ML IV SCH (16:59)
[2019-09-23] MEDS: PROTONIX IV SCH (17:00)
[2019-09-23] MEDS: ZITHROMAX 500 MG/NS 500 MG/250 ML IVPB IV SCH (17:42)
--- NOTE | 2019-09-23 18:51 | PROGRESS NOTE ---
DATE: 09/23/2019 SUBJECTIVE: Patient complains of cough, intermittent back pain. [place] is not helping. PHYSICAL EXAMINATION: Vital signs: Temperature is 98 degrees, pulse is 72. Vitals are stable. HEENT: Within normal limits. Neck: Supple. Chest: Bilateral air entry. Heart: Sounds are regular. Abdomen: Belly is soft, nontender. Neurologic: No neurological deficits. INVESTIGATIONS: Blood sugars are running a little bit high at 289. ASSESSMENT AND PLAN: 1. Left upper lobe pneumonia, better. 2. Congestive heart failure, due to ischemic cardiomyopathy, stable. 3. Status post bioprosthetic valve replacement, stable. 4. Type 2 diabetes. Will start on insulin pump. 5. Chronic back pain, status post recent surgery. [place] were taken out. Continue changing the [place] to tramadol and will repeat the chest x-ray in the morning. 6. Disposition. 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 LEVEL OF DOCUMENTATION: 25 minutes. cc: Dejan Arceo MD
[2019-09-23] MEDS: SEROQUEL PO SCH (20:47)
[2019-09-23] MEDS: LOVENOX SUBQ SCH (20:48)
[2019-09-23] MEDS: ZOCOR PO SCH (20:48)
[2019-09-24] MEDS: ALBUTEROL NEB INH SCH ×6 (03:10→23:07)
[2019-09-24] MEDS: ROBITUSSIN-DM PO PRN ×2 (05:18→14:28)
[2019-09-24] MEDS: HUMULIN R SUBQ SCH ×4 (06:19→20:35)
[2019-09-24] MEDS: TESSALON PO SCH ×3 (08:50→20:35)
[2019-09-24] MEDS: MIRALAX PO SCH (08:51)
[2019-09-24] MEDS: VICON-C PO SCH (08:51)
[2019-09-24] MEDS: LASIX PO SCH (08:51)
[2019-09-24] MEDS: ASPIRIN EC PO SCH (08:51)
[2019-09-24] MEDS: THERA M PLUS PO SCH (08:51)
[2019-09-24] MEDS: MUCINEX PO SCH ×2 (08:51→20:35)
[2019-09-24] MEDS: ENTRESTO 49 MG-51 MG TABLET PO SCH ×2 (08:51→20:35)
[2019-09-24] MEDS: ULTRACET 37.5MG/325MG PO PRN ×3 (08:51→20:48)
[2019-09-24] MEDS: COREG PO SCH ×2 (08:51→20:35)
[2019-09-24] MEDS: KLOR-CON PO SCH (08:51)
--- NOTE | 2019-09-24 10:07 | Diag Imaging Result Doc PS360 ---
EXAM: CHEST-2 VIEWS HISTORY: hypoxia TECHNIQUE: Two views COMPARISON: 09/20/2019 FINDINGS: The lungs are well expanded. The heart is not enlarged. A heart valve has been replaced. The vessels are not distended. There are no infiltrates. No pleural effusions. IMPRESSION: No acute abnormality. Electronically signed by Gerald Schuster 09/24/2019 10:04 AM
[2019-09-24] MEDS: SODIUM CHLORIDE 0.9% INJ SCH (16:39)
[2019-09-24] MEDS: PROTONIX IV SCH (16:39)
[2019-09-24] MEDS: ROCEPHIN 1 GM in NS 50 ML IV SCH (16:39)
[2019-09-24] MEDS: ZITHROMAX 500 MG/NS 500 MG/250 ML IVPB IV SCH (16:39)
--- NOTE | 2019-09-24 19:13 | PROGRESS NOTE ---
DATE: 09/24/2019 SUBJECTIVE: The patient is better. Occasional cough. Waiting for a chest x-ray. REVIEW OF SYSTEMS: None reported. PHYSICAL EXAMINATION: Temperature is 97.9 degrees, pulse 80, blood pressure 106/47.Chest: Clear. Heart sounds are regular. No edema. LABORATORY DATA: Blood sugar is 280. ASSESSMENT AND PLAN: 1. Left upper lobe pneumonia. Better. 2. Congestive heart failure. Better. 3. Chronic back pain. Stable. 4. Delirium. On Seroquel. We will initiate insulin pump. If the x-ray is stable, we will discharge in the morning, follow up as an outpatient, and arrange home healthcare. LEVEL OF DOCUMENTATION: 25 minutes. cc: Dejan Arceo MD
[2019-09-24] MEDS: SEROQUEL PO SCH (20:35)
[2019-09-24] MEDS: ZOCOR PO SCH (20:35)
[2019-09-24] MEDS: LOVENOX SUBQ SCH (20:35)
[2019-09-25] MEDS: ALBUTEROL NEB INH SCH ×3 (03:15→11:31)
[2019-09-25] MEDS: HUMULIN R SUBQ SCH ×2 (06:25→11:18)
[2019-09-25] MEDS ORDERED: ZOFRAN IV PRN (07:16)
[2019-09-25] MEDS: COREG PO SCH (08:42)
[2019-09-25] MEDS: ENTRESTO 49 MG-51 MG TABLET PO SCH (08:42)
[2019-09-25] MEDS: TESSALON PO SCH (08:43)
[2019-09-25] MEDS: VICON-C PO SCH (08:43)
[2019-09-25] MEDS: THERA M PLUS PO SCH (08:43)
[2019-09-25] MEDS: MUCINEX PO SCH (08:43)
[2019-09-25] MEDS: KLOR-CON PO SCH (08:43)
[2019-09-25] MEDS: LASIX PO SCH (08:43)
[2019-09-25] MEDS: ASPIRIN EC PO SCH (08:44)
[2019-09-25] MEDS: MIRALAX PO SCH (08:44)
[2019-09-25] MEDS: ULTRACET 37.5MG/325MG PO PRN (11:25)
[2019-09-25] MEDS: ROBITUSSIN-DM PO PRN (11:25)
[2019-09-25 12:11] VITALS: BP 119/51
--- NOTE | 2019-09-25 14:56 | DISCHARGE SUMMARY ---
ADMISSION DATE: 09/14/2019 DISCHARGE DATE: 09/25/2019 DISCHARGING DIAGNOSIS: Altered mental status due to metabolic encephalopathy. SECONDARY DIAGNOSES: 1. Left upper lobe pneumonia. 2. Congestive heart failure due to systolic dysfunction due to ischemic cardiomyopathy, status post bioprosthetic valve replacement. 3. Chronic back pain. Recent L5-S1 diskectomy by Dr. Cantu. 4. Type 2 diabetes on insulin pump. 5. Hypertension. 6. Dupuytren contracture. 7. Deafness. 8. Hyperlipidemia. 9. Kidney stones. CONSULTS: [place]. BRIEF HISTORY: Please see the H P that was done on 09/14/2019. In brief, he is a 74-year-old white male recently treated in our clinic with URI symptoms with cough and congestion. The patient had recently back surgery done by Dr. Cantu. Chest x-ray in my office, left upper lobe infiltrate. He had elevated white cell count, cough. The patient was admitted for delirium due to left upper lobe pneumonia. Recently, his also had flu-like symptoms. The patient was given broad-spectrum antibiotics with Rocephin and Zithromax. While he was getting treated on the broadcast journalist on the day of admission, he developed acute respiratory failure, transferred to the ICU on a BiPAP machine. The patient has elevated proBNP. Chest x-ray florid CHF. He was given IV Lasix and follow up on diuresis. His chest x-ray was completely better. He has intermittent confusion and CT head was negative. This is all related to delirium. He has a persistent cough and follow up chest x-ray stable. At this time, the treatment was relegated to medical management for CHF with fluid restrictions and daily weights. He was able to ambulate with the 's assistance and did not qualify for outpatient rehab. The patient has been arranged outpatient home health care. LABS: At the time of discharge as follows: White cell count came down to 7.7, hematocrit 32, platelets 370,000. ABG on room air, pH is 7.48, pCO2 40, PO2 66. Sodium 135, potassium 3.8, chloride 93, BUN 18, creatinine 0.8, glucose 274, calcium 8.2. Blood cultures are negative. The discharging weight was 201 pounds. INSTRUCTIONS: Prior to that, I started on insulin pump and he is getting total basal insulin 64 units per day. Outpatient home health. Continue the basal rate insulin. Do not give any boluses. Simvastatin 10 daily, aspirin 81 mg daily, Coreg 3.125 p.o. b.i.d., vitamin B complex 150 daily, Entresto 49/51 one tablet p.o. b.i.d., Aldactazide 25/25 daily, Tessalon Perles 1 tablet t.i.d., Seroquel 25 at bedtime, Ultracet as needed for pain and follow up in my office in [address] Cantu. cc: Dejan Arceo MD
== END 2019-09-25 13:45 | disposition home health service (06) | DRG 193 ==
LOC: DIRADM 16:11 → EDIPHOLD 16:55 → 1N 23:06 → ICU 09-15 04:29 → 2N 09-18 00:42
PROVIDERS: ADMIT Internal Medicine; ATTEND Internal Medicine